=== PATIENT | male | born 1970 | race Caucasian/White ===

== ENCOUNTER 2025-07-03 19:59 | Inpatient (IN) | payer OTHER, SELFPAY ==
[2025-07-03 20:06] VITALS: BP 126/82; PULSE 42; O2SAT 98; BMI 23.6
--- NOTE | 2025-07-03 20:14 | ED.GENADULT ---
HPI - General Adult General Chief complaint: Psychiatric Symptoms Stated complaint: SI Time Seen by Provider: 07/03/25 20:14 Source: patient and EMS Mode of arrival: EMS Limitations: no limitations History of Present Illness ED Provider: Mimi Beyer PA-C HPI narrative: Patient is a 55 year old assigned male at with a history of hepatitis C, depression, IVDA, opiate use disorder on methadone, and tobacco presenting to the emergency department today with suicidal ideation. Patient states that he was recently hospitalized at [facility] for depression and got discharged - went to his boys house, and once kicked out, realized he couldn't take it anymore and began to feel suicidal. Patient denies any other complaints at this time. Related Data Home Medications ?Medication ?Instructions ?Recorded ?Confirmed albuterol sulfate 90 mcg/actuation 2 puff inhalation Q4-6H PRN 07/03/25 07/03/25 aerosol inhaler (Ventolin HFA) Wheezing clonidine HCl 0.1 mg tablet 0.1 mg PO BID 07/03/25 07/03/25 gabapentin 100 mg capsule 100 mg PO TID 07/03/25 07/03/25 hydroxyzine pamoate 50 mg capsule 50 mg PO BID PRN Anxiety 07/03/25 07/03/25 lurasidone 40 mg tablet 40 mg PO DAILY 07/03/25 07/03/25 mirtazapine 7.5 mg tablet 7.5 mg PO BEDTIME 07/03/25 07/03/25 Allergies Allergy/AdvReac Type Severity Reaction Status Date / Time bee pollen (BEE STINGS) Allergy Severe ANAPHYLAXIS Verified 07/03/25 20:23 codeine (CODEINE) Allergy Intermediate HIVES Verified 07/03/25 20:23 Penicillins (PENICILLINS) Allergy Intermediate HIVES Verified 07/03/25 20:23 Review of Systems Constitutional: Constitutional: Reports as per HPI Eyes: Eyes: Reports as per HPI ENT: Reports as per HPI Cardiovascular: Cardiovascular: Reports as per HPI Respiratory: Respiratory: Reports as per HPI Gastrointestinal: Gastrointestinal: Reports as per HPI Genitourinary: Genitourinary: Reports as per HPI Musculoskeletal: Musculoskeletal: Reports as per HPI Integumentary/Breasts: Skin/Breast: Reports as per HPI Neurologic: Reports as per HPI Psychiatric: Psychiatric: Reports as per HPI Endocrine: Endocrine: Reports as per HPI Hematologic/Lymphatic: Hematologic/Lymphatic: Reports as per HPI Allergic/Immunologic: Allergic/Immunologic: Reports as per HPI PMFSH Past Medical History Attestation statement: The following information was validated with the patient. Source: old records reviewed and nursing notes reviewed Social History Social History Smoked in Last 30 Days: No Use of substances other than those prescribed or required for medical reasons: Yes Substance Use Type: Heroin Substance Use Frequency: Weekly Any prior treatment program specific to substance use: No Advance Directives: No Advance Directives Information Provided: No Do you have a plan to hurt others: No Plan Physical Exam ED Vital Signs: Vital Signs - 24 hr 07/03/25 20:52 Pulse Rate 52 Respiratory Rate 16 Blood Pressure 96/60 Pulse Oximetry 97 Oxygen Delivery Method Room Air BMI result Body Mass Index 23.6 Const General: cooperative, no acute distress, alert and awake Nutritional Appearance: well nourished Orientation/consciousness: patient oriented x3 HENMT Head: Yes normal to inspection and Yes atraumatic Ears: hearing grossly normal bilaterally and external ears normal General nose exam: Normal external nose present, no nasal discharge noted and no epistaxis Face and sinus: Yes normal facial exam, No abrasion and No laceration Mouth: Normal oral and palatal mucosa present, no drooling and no muffled voice Eyes Periorbital: periorbital findings normal Conjunctivae: conjunctivae normal Neck Neck: Yes normal visual inspection and Yes full ROM Resp Effort & Inspection: normal respiratory effort and able to speak in complete sentences Neuro General: patient oriented x3, moves all extremities and CN's II-XI intact bilaterally Cognition (Neuro): normal cognition Extrem General: Yes normal to inspection, Yes full ROM and Yes capillary refill normal Psych Appearance: grossly normal Mental Status: mental status grossly normal Affect: normal affect Attitude: cooperative Thought process: Normal thought process present Thought content: Normal thought content present Insight: Good insight present (Psych) Medications Administered Generic Name Dose Route Start Last Admin Trade Name Freq PRN Reason Stop Dose Admin Methadone HCl 160 mg 07/03/25 20:18 07/03/25 22:45 Methadone Hcl 20 Mg/2 Ml Oral.Conc PO 07/03/25 20:19 Not Given ONCE ONE Medical Decision Making Medical Decision Making MDM Narrative: Patient is a 55 year old assigned male at with a history of hepatitis C, depression, IVDA, opiate use disorder on methadone, and tobacco presenting to the emergency department today with suicidal ideation. Patient's physical exam was as noted in the physical exam portion of this note. Patient's blood work showed a HGB of 13.2, BUN of 21, AST of 82, and ALT of 121. Patient's elevated LFTs is likely secondary to his hepatitis status. I explained my physical exam findings as well as all test results to the patient. I answered all questions asked by the patient. Patient placed in observation at 2014 pending CARE Team evaluation. Patient's disposition will be determined after CARE team evaluation. Differential Diagnosis Differential Diagnoses: The differential diagnosis associated with the presentation includes Suicidal ideation Depression Admission/Observation Consideration of admission/observation: Escalation of care including admission/observation considered Patient's disposition will be determined after CARE team evaluation. Lab Data [facility] Lab Attestation statement: I reviewed the patient's lab results. My interpretation of these results are in the MDM Rationale portion of this note. 07/03/25 20:58 07/03/25 20:58 Labs: Lab Results 07/03/25 Range/Units 20:58 WBC 6.4 (4.8-10.8) X10*3/uL RBC 4.56 L (4.60-5.80) X10*6/uL Hgb 13.2 L (14.0-18.0) g/dl Hct 41.0 L (42.0-52.0) % MCV 89.9 (80.0-98.0) fL MCH 28.9 (27.0-33.0) pg MCHC 32.2 (31.0-36.0) g/dl RDW 13.7 (11.0-16.0) % Plt Count 156 L (160-400) X10*3/uL MPV 10.8 (9.4-12.4) fL Immature Gran % (Auto) 0.3 (0.0-0.4) % Neut % (Auto) 57.6 (45-73) % Lymph % (Auto) 33.1 (20-40) % Maury % (Auto) 7.2 (2-11) % Eos % (Auto) 1.3 (0-4) % Baso % (Auto) 0.5 (0-2) % Lymph # (Auto) 2.1 (1.2-4.9) X10*3/uL Maury # (Auto) 0.5 (0.1-1.2) X10*3/uL Eos # (Auto) 0.1 (0.0-0.4) X10*3/uL Baso # (Auto) 0.0 (0.0-0.2) X10*3/uL Abs Immat Gran (auto) 0.02 (0.00-0.03) X10*3/uL Absolute Neuts (auto) 3.7 (2.0-8.3) x10*3/uL Absolute Nucleated RBC 0.000 (0.0-0.012) X10*3/uL Nucleated RBC % (auto) 0.0 (0.0-0.2) /100WBC Sodium 139 (135-145) mmol/L Potassium 4.3 (3.3-5.1) mmol/L Chloride 103 (96-108) mmol/L Carbon Dioxide 26 (22-29) mmol/L Anion Gap 14 (12-20) BUN 21 H (9-16) mg/dL Creatinine 1.20 (0.5-1.4) mg/dL Estim Creat Clear Calc 68.7 Estimated GFR > 60 Random Glucose 144 H (60-115) mg/dL Calcium 9.3 (8.4-10.2) mg/dL Total Bilirubin 0.7 (0.0-1.0) mg/dL AST 82 H (5-37) U/L ALT 121 H (0-40) U/L Alkaline Phosphatase 64 (39-117) U/L Total Protein 7.8 (6.5-8.0) g/dL Albumin 4.4 (3.5-5.0) g/dL Salicylates < 5.0 L (15-30) mg/dL Acetaminophen < 3 (<30) mcg/mL Ethyl Alcohol 12 mg/dL Independent Historian Clinical information obtained from an independent historian. History obtained from or confirmed by: EMS (EMS provided additional history and confirmed the history provided by the patient. ) External Record Review External record reviewed: Outside ED record (reviewed [facility] ED visit from 06/24/2025) Discharge Plan Discharge Clinical Impression: Depression Prescriptions: No Action clonidine HCl 0.1 mg tablet 0.1 mg PO BID hydroxyzine pamoate 50 mg capsule 50 mg PO BID PRN (Reason: Anxiety) gabapentin 100 mg capsule 100 mg PO TID albuterol sulfate [Ventolin HFA] 90 mcg/actuation HFA aerosol inhaler 2 puff inhalation Q4-6H PRN (Reason: Wheezing) mirtazapine 7.5 mg tablet 7.5 mg PO BEDTIME lurasidone 40 mg tablet 40 mg PO DAILY Interventions: [place]-Suicide Risk Severity Scale Last Done: 07/03/25 20:33 Print Language: Belarusian
[2025-07-03 20:52] VITALS: BP 96/60; PULSE 52; RESP 16; O2SAT 97
[2025-07-03 21:05] LABS: Hematocrit 41.0 % (42.0-52.0); Hemoglobin 13.2 g/dl (14.0-18.0); Imm Gran Abs Auto 0.02 X10*3/uL (0.00-0.03); Imm Gran Pct Auto 0.3 % (0.0-0.4); Lymphocytes Absolute Auto 2.1 X10*3/uL (1.2-4.9); MANUAL DIFF FLAG NO; Mean Corpuscular HGB Conc 32.2 g/dl (31.0-36.0); Mean Corpuscular Hemoglobin 28.9 pg (27.0-33.0); Mean Corpuscular Volume 89.9 fL (80.0-98.0); NRBC Abs Auto 0.000 X10*3/uL (0.0-0.012); NRBC Pct Auto 0.0 /100WBC (0.0-0.2); Platelet Count 156 X10*3/uL (160-400); Red Blood Count 4.56 X10*6/uL (4.60-5.80); White Blood Count 6.4 X10*3/uL (4.8-10.8)
[2025-07-03 21:23] LABS: Alanine Aminotransferase 121 U/L (0-40); Albumin Level 4.4 g/dL (3.5-5.0); Alkaline Phosphatase 64 U/L (39-117); Anion Gap 14 (12-20); Aspartate Amino Transferase 82 U/L (5-37); Blood Urea Nitrogen 21 mg/dL (9-16); Calcium 9.3 mg/dL (8.4-10.2); Carbon Dioxide 26 mmol/L (22-29); Chloride 103 mmol/L (96-108); Creatinine Clr Calc Pharmacy 68.7; Estimated Glomerular Filt Rate > 60; Potassium 4.3 mmol/L (3.3-5.1); Sodium 139 mmol/L (135-145); Total Protein 7.8 g/dL (6.5-8.0)
[2025-07-03 21:24] LABS: Acetaminophen LAB < 3 mcg/mL (<30); Salicylate < 5.0 mg/dL (15-30)
--- NOTE | 2025-07-03 22:45 | PC.NURSE ---
Pts Methadone is not given, due to not being able to verify dose at this time, provider and RN made aware.
[2025-07-03 23:12] LABS: Appearance Urine Clear; Glucose Urine UA Negative (Negative); PH 6.0 (5.0-9.0); Specific Gravity - Urine 1.025 (1.005-1.025); UMIC TRIGGER UA YES
[2025-07-03 23:21] LABS: Cannabinoid Screen Urine Not Detected (Not Detect)
--- NOTE | 2025-07-04 | ECG_ITS ---
Test Reason : CHECK PROLONG QT Blood Pressure : */* mmHG Vent. Rate : 42 BPM Atrial Rate : 42 BPM P-R Int : 146 ms QRS Dur : 90 ms QT Int : 546 ms P-R-T Axes : 64 56 47 degrees QTcB Int : 455 ms Marked sinus bradycardia Abnormal ECG No previous ECGs available Referred By: Mimi Beyer Electronically Signed By: KENDELL MARCELO
--- NOTE | 2025-07-04 00:17 | PC.NURSE ---
pt calm and cooperative in stretcher, 1:1 sitter at bedside. respirations even and unlabored.
[2025-07-04 07:00] VITALS: BP 102/70; PULSE 52; RESP 16; TEMP 36.6; O2SAT 97
--- NOTE | 2025-07-04 07:14 | PC.NURSE ---
Pt moved from ED 16H to 3 with security and T Bert. Pt is calm and cooperative, offering no complaints to this RN at this time, continue the plan of care for CARE team evaluation
--- NOTE | 2025-07-04 07:54 | HE.PHANOTE ---
METHADONE Pt last received 160 mg on 07/02/25 from [facility], , per Richard ABRAHAM at the facility.
[2025-07-04] MEDS: methADONE HCl 20 MG/2 ML ORAL.CONC 160 MG PO (08:54)
--- NOTE | 2025-07-04 09:07 | MHC.CARE ---
Pt meets the criteria for DUAL DX level of care. Section 12a in chart. ED provider in agreement.
--- NOTE | 2025-07-04 14:07 | PHA.MEDREC ---
Pharmacy Consult ? Medication Reconciliation Pharmacy has reviewed the medication reconciliation done by RN.
[2025-07-04 16:14] VITALS: BMI 24.1
[2025-07-04 16:15] VITALS: BP 163/74; PULSE 56; RESP 14; TEMP 36.7; O2SAT 97
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
[2025-07-04 20:00] VITALS: BP 131/85; PULSE 59; RESP 16; TEMP 36.5; O2SAT 98
[2025-07-04 20:36] VITALS: BP 131/85
[2025-07-05] MEDS: methADONE HCl 20 MG/2 ML ORAL.CONC 160 MG PO (07:44)
[2025-07-05 08:00] VITALS: BP 124/73; PULSE 60; RESP 18; TEMP 36.3; O2SAT 97
[2025-07-05 08:54] LABS: Alanine Aminotransferase 119 U/L (0-40); Albumin Level 4.2 g/dL (3.5-5.0); Alkaline Phosphatase 87 U/L (39-117); Anion Gap 13 (12-20); Aspartate Amino Transferase 67 U/L (5-37); Blood Urea Nitrogen 18 mg/dL (9-16); Calcium 9.6 mg/dL (8.4-10.2); Carbon Dioxide 29 mmol/L (22-29); Chloride 106 mmol/L (96-108); Cholesterol 201 mg/dL (<200); Creatinine Clr Calc Pharmacy 93.7; Estimated Glomerular Filt Rate > 60; HDL Cholesterol 59 mg/dL (>40); Potassium 4.5 mmol/L (3.3-5.1); Sodium 143 mmol/L (135-145); Total Protein 7.5 g/dL (6.5-8.0); Triglycerides 105 mg/dL (<150)
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
[2025-07-05] MEDS: Triamcinolone Acet 0.1 % Oint 15 GM TUBE 1 APPL TOPICAL (13:30)
[2025-07-05] MEDS: Venlafaxine HCl ER 37.5 MG CAP.ER.24H PO (15:00)
[2025-07-05 20:00] VITALS: BP 122/86; PULSE 60; RESP 15; TEMP 36.4; O2SAT 98
[2025-07-06] MEDS: methADONE HCl 20 MG/2 ML ORAL.CONC 170 MG PO (07:47)
[2025-07-06 08:00] VITALS: BP 117/55; PULSE 66; RESP 18; TEMP 36.9; O2SAT 98
--- NOTE | 2025-07-06 08:32 | HO.PM.IMCN ---
History of Present Illness Data of Consult Service Date: 07/06/25 Primary Care Provider: Unknown Physician HPI Reason for consult: Medical consult 55-year-old male with a past medical history of untreated hep C, depression, IVDA, opioid use disorder on methadone, GERD in tobacco misuse. Presented to the ED with suicidal ideation. Patient was recently hospitalized at [facility] and went to a friend's house and was subsequently kicked out and began to feel suicidal after this. Initial workup with HGB of 13.2, BUN of 21, AST of 82, and ALT of 121. On exam he reports he has not been getting his omeprazole for his diagnosed GERD. Reports that he falls outpatient GI but does not know the name, has had upper and lower GI series. He otherwise has no medical concerns. Review of Systems Review of Systems: Denies any shortness of breath, chest pain, headaches, dysuria, abdominal pain or discomfort, nausea, vomiting or diarrhea. Denies fever or chills. [facility] Medical History (Updated 07/06/25 @ 13:44 by Sarah Blair DNP) Homeless Cocaine use disorder Opioid use disorder PTSD (post-traumatic stress disorder) MDD (major depressive disorder), recurrent, severe, with psychosis Social History Housing: Homeless Do you presently have visiting nurse or other home services: No Patient Tobacco Use Status: Current everyday Tobacco user Tobacco use type: Cigarette Smoked in Last 30 Days: Yes e-Cigarette/Vaping Use: Never Used Patient Interested in Nicotine Replacement: Yes Patient Given Instructions on How to Stop Smoking: Yes Date Education Initiated: 07/04/25 Second Hand Smoke Exposure: Yes Use of substances other than those prescribed or required for medical reasons: Yes Substance Use Type: Heroin Substance Use Frequency: Weekly Currently Displaying Signs/Symptoms of Drug Intoxication Withdrawal: No Any prior treatment program specific to substance use: No Have you been hit, kicked, punched, or otherwise hurt by someone within the past year? If so, by whom?: No Do you feel safe in your current relationship?: No Current Relationship Is there a partner from a previous relationship who is making you feel unsafe now?: No Are you made to feel afraid or neglected: No Advance Directives: No Advance Directives Information Provided: No Do you have thoughts of harming others: None Do you have a plan to hurt others: No Plan Recently lost weight without trying: Yes How much weight loss: 14-23 pounds Eating poorly because of decreased appetite: Yes Nutrition screen score: 5 Nutrition Risks: Anorexia Poor oral hygiene: No service: No Sexual orientation: Straight/Heterosexual Meds Allergies Allergy/AdvReac Type Severity Reaction Status Date / Time bee pollen (BEE STINGS) Allergy Severe ANAPHYLAXIS Verified 07/03/25 20:23 codeine (CODEINE) Allergy Intermediate HIVES Verified 07/03/25 20:23 Penicillins (PENICILLINS) Allergy Intermediate HIVES Verified 07/03/25 20:23 Active Medications: Current Medications Acetaminophen (Acetaminophen 325 Mg Tablet) 650 mg PO Q6H PRN PRN Reason: Headache/Pain, Scale 1-10 Last Admin: 07/05/25 11:02 Dose: 650 mg Al Hydroxide/Mg Hydroxide (Magnesium Hydrox/Alum Hydrox 30 Ml Oral.Susp) 30 ml PO Q6H PRN PRN Reason: Heartburn/Nausea Albuterol Sulfate (Albuterol Sulfate 90 Mcg 8 Gm Inhaler) 2 puff INHALE Q4H PRN PRN Reason: Wheezing Clonidine HCl (Clonidine Hcl 0.1 Mg Tablet) 0.1 mg PO BID [facility]; Protocol Last Admin: 07/05/25 20:46 Dose: 0.1 mg Gabapentin (Gabapentin 100 Mg Capsule) 100 mg PO TID [facility] Last Admin: 07/05/25 20:45 Dose: 100 mg Glucose (Glucose Gel 15 Gm Gel..Gram.) 15 gm PO Q15M PRN PRN Reason: per Hypoglycemia Standing Ord. Hydroxyzine HCl (Hydroxyzine Hcl 50 Mg Tablet) 50 mg PO BID PRN PRN Reason: Anxiety Last Admin: 07/05/25 20:45 Dose: 50 mg Magnesium Hydroxide (Milk Of Magnesia 30 Ml Oral.Susp) 30 ml PO DAILY PRN PRN Reason: Constipation Methadone HCl (Methadone Hcl 20 Mg/2 Ml Oral.Conc) 170 mg PO DAILY [facility] Last Admin: 07/06/25 07:47 Dose: 170 mg Mirtazapine (Mirtazapine 7.5 Mg Tablet) 7.5 mg PO BEDTIME [facility] Last Admin: 07/05/25 20:46 Dose: 7.5 mg Multi-Ingred Cream/Lotion/Oil/Oint (Mineral Oil/Petrolatum,White 106 Gm Tube) 1 appl TOPICAL TID PRN; Protocol PRN Reason: dry skin Nicotine Polacrilex (Nicotine Polacrilex 2 Mg Gum) 4 mg BUCCAL Q2H PRN PRN Reason: Nicotine Cravings Olanzapine (Olanzapine 5 Mg Tablet) 5 mg PO TID PRN PRN Reason: agitation Last Admin: 07/05/25 20:48 Dose: 5 mg Trazodone HCl (Trazodone Hcl 50 Mg Tablet) 50 mg PO BEDTIME MRX1 PRN PRN Reason: Insomnia Triamcinolone Acetonide (Triamcinolone Acet 0.1 % Oint 15 Gm Tube) 1 appl TOPICAL BID [facility] Last Admin: 07/05/25 20:59 Dose: Not Given Venlafaxine HCl (Venlafaxine Hcl Er 37.5 Mg Cap.Er.24h) 37.5 mg PO DAILY [facility] Last Admin: 07/05/25 15:00 Dose: 37.5 mg Home Medications ?Medication ?Instructions ?Recorded ?Confirmed ?Last Taken ?Type albuterol sulfate 90 mcg/actuation 2 puff inhalation Q4-6H PRN 07/03/25 07/03/25 Unknown History aerosol inhaler (Ventolin HFA) Wheezing clonidine HCl 0.1 mg tablet 0.1 mg PO BID 07/03/25 07/03/25 07/01/25 History gabapentin 100 mg capsule 100 mg PO TID 07/03/25 07/03/25 07/01/25 History hydroxyzine pamoate 50 mg capsule 50 mg PO BID PRN Anxiety 07/03/25 07/03/25 Unknown History lurasidone 40 mg tablet 40 mg PO DAILY 07/03/25 07/03/25 07/01/25 History mirtazapine 7.5 mg tablet 7.5 mg PO BEDTIME 07/03/25 07/03/25 07/01/25 History methadone 10 mg/mL oral 160 mg PO DAILY 07/04/25 07/04/25 07/02/25 History concentrate (Methadone Intensol) Physical Exam Vital Signs and Narrative: Vital Signs: Last Vital Signs Temp 97.5 F 07/05/25 20:00 Pulse 60 07/05/25 20:00 Resp 15 07/05/25 20:00 BP 122/86 07/05/25 20:00 Pulse Ox 98 07/05/25 20:00 O2 Del Method Room Air 07/05/25 08:00 BMI result Body Mass Index 24.1 Alert and oriented X3, calm and cooperative. Answers questions. Neuro: CN II-X11 intact, no deficits, visual acuity intact EYES: PERRLA, EOM intact ENT: Hearing intact, MMM Cardiac: S1 S2 RRR, No ectopy Pulmonary: lungs clear to auscultation, No increased WOB. Abdominal: BS active in all 4 quadrants, no guarding or tenderness MSK: Strength 5/5 upper and lower extremities : Deferred Extremities: No edema in lower extremities Psych: Mood stable, Quiet and cooperative. Skin: Warm and dry, Intact Results Labs 07/03/25 20:58 07/05/25 08:08 Labs: Laboratory Results - last 24 hr 07/05/25 08:08 Anion Gap 13 Estim Creat Clear Calc 93.7 Estimated GFR > 60 Random Glucose 85 Estimat Average Glucose 111 Hemoglobin A1c % 5.5 Calcium 9.6 Total Bilirubin 0.4 AST 67 H ALT 119 H Alkaline Phosphatase 87 Total Protein 7.5 Albumin 4.2 Triglycerides 105 Cholesterol 201 H LDL Cholesterol, Calc 121 H HDL Cholesterol 59 TSH 2.01 Assessment and Plan (1) GERD (gastroesophageal reflux disease): Status: Acute Plan 55-year-old male with a history of untreated hep C, depression, IVDA, opioid use disorder on methadone, restless legs syndrome, GERD, tobacco use admitted to inpatient psych after presenting to the ED with suicidal ideation. Depression/suicidal ideations/IVDA/opioid use disorder on methadone Treatment per psychiatric team GERD Continue omeprazole daily Follow up with GI outpatient Transaminitis/untreated hep C We will need to follow up with outpatient GI Thank you for allowing me to participate in the care of this patient. Will follow with you, please notify medical provider with any changes in condition or concerns.
[2025-07-06 08:45] VITALS: BP 114/59
[2025-07-06] MEDS: Triamcinolone Acet 0.1 % Oint 15 GM TUBE 1 APPL TOPICAL (08:46)
[2025-07-06] MEDS: Venlafaxine HCl ER 37.5 MG CAP.ER.24H PO (08:46)
--- NOTE | 2025-07-06 17:37 | P.PNPSI_ITS ---
Subjective Subjective Date of Service: 07/06/25 Reason For Visit: SI Interim History: Met with patient; discussed with team Patient reports he remains depressed and anxious but is feeling better and grateful for the help received. Attending groups. Agrees to increase venlafaxine. Reiterates that he very much wants help getting into a program Mental Status Exam Mental Status Exam Narrative: :Pt is alert and oriented; behavior is more social, in good behavioral and impulse control; cooperative, polite, friendly; patient is not in distress; dressed in casual attire; mood is described as depressed and affect congruent, downcast; eye contact appropriate; Speech is normal rate, volume and prosody and not pressured; psychomotor retardation remain; thought process is organized and goal directed; Thought content is on dealing with psychosocial stressors, tx; otherwise pertinent to relevant topics and without any delusional content, paranoid ideations or grandiosity; no SI; no HI. Denies AVH and there is no evidence of perceptual disturbance. Patients insight and judgment improving Diagnostics Vital Signs (24Hr): Vital Signs - 24 hr 07/05/25 20:00 07/06/25 08:00 07/06/25 08:45 Temperature 97.5 F 98.5 F Pulse Rate 60 66 Respiratory Rate 15 18 Blood Pressure 122/86 117/55 L 114/59 L Pulse Oximetry 98 98 Oxygen Delivery Method Room Air BMI result Body Mass Index 24.1 Labs 07/03/25 20:58 07/05/25 08:08 Labs: Laboratory Results - last 48 hr 07/05/25 08:08 Sodium 143 Potassium 4.5 Chloride 106 Carbon Dioxide 29 Anion Gap 13 BUN 18 H Creatinine 0.88 Estim Creat Clear Calc 93.7 Estimated GFR > 60 Random Glucose 85 Estimat Average Glucose 111 Hemoglobin A1c % 5.5 Calcium 9.6 Total Bilirubin 0.4 AST 67 H ALT 119 H Alkaline Phosphatase 87 Total Protein 7.5 Albumin 4.2 Triglycerides 105 Cholesterol 201 H LDL Cholesterol, Calc 121 H HDL Cholesterol 59 TSH 2.01 Medications Medications Current Medications Acetaminophen (Acetaminophen 325 Mg Tablet) 650 mg PO Q6H PRN PRN Reason: Headache/Pain, Scale 1-10 Last Admin: 07/05/25 11:02 Dose: 650 mg Al Hydroxide/Mg Hydroxide (Magnesium Hydrox/Alum Hydrox 30 Ml Oral.Susp) 30 ml PO Q6H PRN PRN Reason: Heartburn/Nausea Albuterol Sulfate (Albuterol Sulfate 90 Mcg 8 Gm Inhaler) 2 puff INHALE Q4H PRN PRN Reason: Wheezing Clonidine HCl (Clonidine Hcl 0.1 Mg Tablet) 0.1 mg PO BID COUNTS INCLUDE 234 BEDS AT THE [facility]; Protocol Last Admin: 07/06/25 08:45 Dose: 0.1 mg Gabapentin (Gabapentin 100 Mg Capsule) 100 mg PO TID COUNTS INCLUDE 234 BEDS AT THE [facility] Last Admin: 07/06/25 14:14 Dose: 100 mg Glucose (Glucose Gel 15 Gm Gel..Gram.) 15 gm PO Q15M PRN PRN Reason: per Hypoglycemia Standing Ord. Hydroxyzine HCl (Hydroxyzine Hcl 50 Mg Tablet) 50 mg PO BID PRN PRN Reason: Anxiety Last Admin: 07/05/25 20:45 Dose: 50 mg Magnesium Hydroxide (Milk Of Magnesia 30 Ml Oral.Susp) 30 ml PO DAILY PRN PRN Reason: Constipation Methadone HCl (Methadone Hcl 20 Mg/2 Ml Oral.Conc) 170 mg PO DAILY COUNTS INCLUDE 234 BEDS AT THE [facility] Last Admin: 07/06/25 07:47 Dose: 170 mg Mirtazapine (Mirtazapine 7.5 Mg Tablet) 7.5 mg PO BEDTIME COUNTS INCLUDE 234 BEDS AT THE [facility] Last Admin: 07/05/25 20:46 Dose: 7.5 mg Multi-Ingred Cream/Lotion/Oil/Oint (Mineral Oil/Petrolatum,White 106 Gm Tube) 1 appl TOPICAL TID PRN; Protocol PRN Reason: dry skin Nicotine Polacrilex (Nicotine Polacrilex 2 Mg Gum) 4 mg BUCCAL Q2H PRN PRN Reason: Nicotine Cravings Olanzapine (Olanzapine 5 Mg Tablet) 5 mg PO TID PRN PRN Reason: agitation Last Admin: 07/06/25 11:05 Dose: 5 mg Omeprazole (Omeprazole 20 Mg Capsule.Dr) 20 mg PO DAILY@0630 COUNTS INCLUDE 234 BEDS AT THE [facility] Last Admin: 07/06/25 14:14 Dose: 20 mg Trazodone HCl (Trazodone Hcl 50 Mg Tablet) 50 mg PO BEDTIME MRX1 PRN PRN Reason: Insomnia Triamcinolone Acetonide (Triamcinolone Acet 0.1 % Oint 15 Gm Tube) 1 appl TOPICAL BID COUNTS INCLUDE 234 BEDS AT THE [facility] Last Admin: 07/06/25 08:46 Dose: 1 appl Venlafaxine HCl (Venlafaxine Hcl Er 37.5 Mg Cap.Er.24h) 37.5 mg PO DAILY COUNTS INCLUDE 234 BEDS AT [facility] Last Admin: 07/06/25 08:46 Dose: 37.5 mg Allergies Allergies Allergy/AdvReac Type Severity Reaction Status Date / Time bee pollen (BEE STINGS) Allergy Severe ANAPHYLAXIS Verified 07/03/25 20:23 codeine (CODEINE) Allergy Intermediate HIVES Verified 07/03/25 20:23 Penicillins (PENICILLINS) Allergy Intermediate HIVES Verified 07/03/25 20:23 Assessment & Plan Assessment & Plan (1) MDD (major depressive disorder), recurrent, severe, with psychosis: Status: Acute Code(s): F33.3 - Major depressive disorder, recurrent, severe with psychotic symptoms (2) PTSD (post-traumatic stress disorder): Status: Acute Code(s): F43.10 - Post-traumatic stress disorder, unspecified (3) Opioid use disorder: Status: Acute Code(s): F11.90 - Opioid use, unspecified, uncomplicated (4) Cocaine use disorder: Status: Acute Code(s): F14.10 - Cocaine abuse, uncomplicated (5) Homeless: Status: Acute Code(s): Z59.00 - Homelessness unspecified Plan HPI: Patient is a 55-year-old male with history of MDD, PTSD, heroin/cocaine use disorder, Hep C who presents for depression and suicide ideation. Patient was recently discharged from [facility], admitted there for depression and SI. On discharge he reports feeling a little better but depression remained. He remained homeless and went to stay at a friend's house however found out he was not able to remain there and faced with homelessness again, depression return, patient had AH he relapsed on heroin and cocaine and became suicidal. He asked his friend if he could have a gun to commit suicide; his friend of course did not give it to him and the 2 of them called 911. Patient denies history of manic type behaviors or episodes; endorses intermittent AH but only when feeling upset and emotional and mood congruent. Formulation/clinical reasoning: Long history of depression compounded by severe childhood trauma which has remained largely on processed; no significant medication trials. Patient started on mirtazapine which stayed at 7.5 mg and just use for sleep; otherwise history of clonidine, Xanax, Adderall... Patient asking for help, with medication and program for help with substance abuse. Reviewed risks/side effects and patient agreed to start on venlafaxine Hospital course: 11/3 Patient reports he remains depressed and anxious but is feeling better and grateful for the help received. Attending groups. Agrees to increase venlafaxine. Reiterates that he very much wants help getting into a program Patient remains in good behavioral and impulse control; he is appropriate with peers and staff and engaged in treatment Plan: CV Q 15 minute checks Continue mirtazapine 7.5 mg q.h.s. for insomnia (trazodone/Seroquel not effective) titrate to venlafaxine 75mg Clonidine p.r.n. Clonidine 0.1 mg b.i.d. home med Gabapentin 100 mg t.i.d. home medication Methadone 170 mg daily home medication . Patient educated on: diagnosis, medication risk/benefits, substance abuse and therapeutic strategies Informed Consent: understands Reason for continued inpatient stay Substantial Risk for: rapid decompensation Time Spent With Patient Time: Total time managing care of this patient today ____ minutes.
[2025-07-06 20:00] VITALS: BP 138/72; PULSE 58; TEMP 36.4; O2SAT 96
[2025-07-06 20:45] VITALS: BP 138/72
[2025-07-07] MEDS: methADONE HCl 20 MG/2 ML ORAL.CONC 170 MG PO (07:59)
[2025-07-07 08:00] VITALS: BP 133/86; PULSE 60; TEMP 36.4; O2SAT 98
[2025-07-07] MEDS: Venlafaxine HCl ER 75 MG CAP.ER.24H PO (08:39)
--- NOTE | 2025-07-07 17:30 | HO.PSYCHPN ---
Subjective Subjective Date of Service: 07/07/25 Reason For Visit: SI Interim History: Met with patient; discussed with team Patient reports overall doing better, depression remains but definitely improving. Patient however reports getting quite anxious today. Not sure if it is due to increase in venlafaxine. Patient continues to engage in groups and work on coping skills. Discussed medication and will lower venlafaxine down again to see if this mitigates anxiety Mental Status Exam Mental Status Exam Narrative: :Pt is alert and oriented; behavior is social, in good behavioral and impulse control; cooperative, polite, friendly; patient is not in distress; dressed in casual attire; mood is described as depressed but better and affect congruent, downcast; eye contact appropriate; Speech is normal rate, volume and prosody and not pressured; psychomotor retardation remain; thought process is organized and goal directed; Thought content is on dealing with psychosocial stressors, tx; otherwise pertinent to relevant topics and without any delusional content, paranoid ideations or grandiosity; no SI; no HI. Denies AVH and there is no evidence of perceptual disturbance. Patients insight and judgment fair Diagnostics Vital Signs (24Hr): Vital Signs - 24 hr 07/06/25 20:00 07/06/25 20:45 07/07/25 08:00 Temperature 97.5 F 97.6 F Pulse Rate 58 60 Blood Pressure 138/72 138/72 133/86 Pulse Oximetry 96 98 Oxygen Delivery Method Room Air Room Air BMI result Body Mass Index 24.1 Labs 07/03/25 20:58 07/05/25 08:08 Medications Medications Current Medications Acetaminophen (Acetaminophen 325 Mg Tablet) 650 mg PO Q6H PRN PRN Reason: Headache/Pain, Scale 1-10 Last Admin: 07/05/25 11:02 Dose: 650 mg Al Hydroxide/Mg Hydroxide (Magnesium Hydrox/Alum Hydrox 30 Ml Oral.Susp) 30 ml PO Q6H PRN PRN Reason: Heartburn/Nausea Albuterol Sulfate (Albuterol Sulfate 90 Mcg 8 Gm Inhaler) 2 puff INHALE Q4H PRN PRN Reason: Wheezing Clonidine HCl (Clonidine Hcl 0.1 Mg Tablet) 0.1 mg PO BID [facility]; Protocol Last Admin: 07/07/25 08:39 Dose: 0.1 mg Clonidine HCl (Clonidine Hcl 0.1 Mg Tablet) 0.1 mg PO Q4H PRN; Protocol PRN Reason: moderate anxiety Gabapentin (Gabapentin 100 Mg Capsule) 100 mg PO TID [facility] Last Admin: 07/07/25 14:07 Dose: 100 mg Glucose (Glucose Gel 15 Gm Gel..Gram.) 15 gm PO Q15M PRN PRN Reason: per Hypoglycemia Standing Ord. Hydroxyzine HCl (Hydroxyzine Hcl 50 Mg Tablet) 50 mg PO BID PRN PRN Reason: Anxiety Last Admin: 07/07/25 14:07 Dose: 50 mg Magnesium Hydroxide (Milk Of Magnesia 30 Ml Oral.Susp) 30 ml PO DAILY PRN PRN Reason: Constipation Methadone HCl (Methadone Hcl 20 Mg/2 Ml Oral.Conc) 170 mg PO DAILY [facility] Last Admin: 07/07/25 07:59 Dose: 170 mg Mirtazapine (Mirtazapine 7.5 Mg Tablet) 7.5 mg PO BEDTIME [facility] Last Admin: 07/06/25 20:47 Dose: 7.5 mg Multi-Ingred Cream/Lotion/Oil/Oint (Mineral Oil/Petrolatum,White 106 Gm Tube) 1 appl TOPICAL TID PRN; Protocol PRN Reason: dry skin Nicotine Polacrilex (Nicotine Polacrilex 2 Mg Gum) 4 mg BUCCAL Q2H PRN PRN Reason: Nicotine Cravings Olanzapine (Olanzapine 5 Mg Tablet) 5 mg PO TID PRN PRN Reason: agitation Last Admin: 07/07/25 10:48 Dose: 5 mg Omeprazole (Omeprazole 20 Mg Capsule.Dr) 20 mg PO DAILY@0630 [facility] Last Admin: 07/07/25 07:16 Dose: 20 mg Trazodone HCl (Trazodone Hcl 50 Mg Tablet) 50 mg PO BEDTIME MRX1 PRN PRN Reason: Insomnia Triamcinolone Acetonide (Triamcinolone Acet 0.1 % Oint 15 Gm Tube) 1 appl TOPICAL BID [facility] Last Admin: 07/07/25 08:42 Dose: Not Given Venlafaxine HCl (Venlafaxine Hcl Er 37.5 Mg Cap.Er.24h) 37.5 mg PO DAILY [facility] Allergies Allergies Allergy/AdvReac Type Severity Reaction Status Date / Time bee pollen (BEE STINGS) Allergy Severe ANAPHYLAXIS Verified 07/03/25 20:23 codeine (CODEINE) Allergy Intermediate HIVES Verified 07/03/25 20:23 Penicillins (PENICILLINS) Allergy Intermediate HIVES Verified 07/03/25 20:23 Assessment & Plan Assessment & Plan (1) MDD (major depressive disorder), recurrent, severe, with psychosis: Status: Acute Code(s): F33.3 - Major depressive disorder, recurrent, severe with psychotic symptoms (2) PTSD (post-traumatic stress disorder): Status: Acute Code(s): F43.10 - Post-traumatic stress disorder, unspecified (3) Opioid use disorder: Status: Acute Code(s): F11.90 - Opioid use, unspecified, uncomplicated (4) Cocaine use disorder: Status: Acute Code(s): F14.10 - Cocaine abuse, uncomplicated (5) Homeless: Status: Acute Code(s): Z59.00 - Homelessness unspecified Plan HPI: Patient is a 55-year-old male with history of MDD, PTSD, heroin/cocaine use disorder, Hep C who presents for depression and suicide ideation. Patient was recently discharged from [facility], admitted there for depression and SI. On discharge he reports feeling a little better but depression remained. He remained homeless and went to stay at a friend's house however found out he was not able to remain there and faced with homelessness again, depression return, patient had AH he relapsed on heroin and cocaine and became suicidal. He asked his friend if he could have a gun to commit suicide; his friend of course did not give it to him and the 2 of them called 911. Patient denies history of manic type behaviors or episodes; endorses intermittent AH but only when feeling upset and emotional and mood congruent. Formulation/clinical reasoning: Long history of depression compounded by severe childhood trauma which has remained largely on processed; no significant medication trials. Patient started on mirtazapine which stayed at 7.5 mg and just use for sleep; otherwise history of clonidine, Xanax, Adderall... Patient asking for help, with medication and program for help with substance abuse. Reviewed risks/side effects and patient agreed to start on venlafaxine Hospital course: 07/06 Patient reports he remains depressed and anxious but is feeling better and grateful for the help received. Attending groups. Agrees to increase venlafaxine. Reiterates that he very much wants help getting into a program 07/07 Patient reports overall doing better, depression remains but definitely improving. Patient however reports getting quite anxious today. Not sure if it is due to increase in venlafaxine. Patient continues to engage in groups and work on coping skills. Discussed medication and will lower venlafaxine down again to see if this mitigates anxiety (many possible causes for anxiety; will monitor) Patient remains in good behavioral and impulse control; he is appropriate with peers and staff and engaged in treatment Plan: CV Q 15 minute checks Continue mirtazapine 7.5 mg q.h.s. for insomnia (trazodone/Seroquel not effective) Temporary lower back to venlafaxine 37.5 mg Clonidine p.r.n. Clonidine 0.1 mg b.i.d. home med Gabapentin 100 mg t.i.d. home medication Methadone 170 mg daily home medication . Reason for continued inpatient stay Substantial Risk for: rapid decompensation Time Spent With Patient Time: Total time managing care of this patient today ____ minutes.
[2025-07-07] MEDS: Triamcinolone Acet 0.1 % Oint 15 GM TUBE 1 APPL TOPICAL (22:39)
[2025-07-08] MEDS: methADONE HCl 20 MG/2 ML ORAL.CONC 170 MG PO (07:56)
[2025-07-08 08:35] VITALS: BP 136/84
[2025-07-08] MEDS: Venlafaxine HCl ER 37.5 MG CAP.ER.24H PO (08:36)
[2025-07-08] MEDS: Triamcinolone Acet 0.1 % Oint 15 GM TUBE 1 APPL TOPICAL (08:36)
--- NOTE | 2025-07-08 08:41 | P.PNPSI_ITS ---
Subjective Subjective Date of Service: 07/08/25 Reason For Visit: SI Interim History: Met with patient; discussed with team Reports mood is good, anxiety not too bad today. Reviewed plan with venlafaxine and patient will monitor for spikes in anxiety. Otherwise reports benefitting from groups and hopeful about getting into a program. Mental Status Exam Mental Status Exam Narrative: :Pt is alert and oriented; behavior is social, in good behavioral and impulse control; cooperative, polite, friendly; patient is not in distress; dressed in casual attire; mood is described as better and affect congruent, brighter; eye contact appropriate; Speech is normal rate, volume and prosody and not pressured; psychomotor retardation remain; thought process is organized and goal directed; Thought content is on dealing with psychosocial stressors, tx; otherwise pertinent to relevant topics and without any delusional content, paranoid ideations or grandiosity; no SI; no HI. Denies AVH and there is no evidence of perceptual disturbance. Patients insight and judgment fair Diagnostics Vital Signs (24Hr): Vital Signs - 24 hr 07/08/25 08:35 Blood Pressure 136/84 BMI result Body Mass Index 24.1 Labs 07/03/25 20:58 07/05/25 08:08 Medications Medications Current Medications Acetaminophen (Acetaminophen 325 Mg Tablet) 650 mg PO Q6H PRN PRN Reason: Headache/Pain, Scale 1-10 Last Admin: 07/05/25 11:02 Dose: 650 mg Al Hydroxide/Mg Hydroxide (Magnesium Hydrox/Alum Hydrox 30 Ml Oral.Susp) 30 ml PO Q6H PRN PRN Reason: Heartburn/Nausea Albuterol Sulfate (Albuterol Sulfate 90 Mcg 8 Gm Inhaler) 2 puff INHALE Q4H PRN PRN Reason: Wheezing Clonidine HCl (Clonidine Hcl 0.1 Mg Tablet) 0.1 mg PO BID [facility]; Protocol Last Admin: 07/08/25 08:35 Dose: 0.1 mg Clonidine HCl (Clonidine Hcl 0.1 Mg Tablet) 0.1 mg PO Q4H PRN; Protocol PRN Reason: moderate anxiety Gabapentin (Gabapentin 100 Mg Capsule) 100 mg PO TID [facility] Last Admin: 07/08/25 08:35 Dose: 100 mg Glucose (Glucose Gel 15 Gm Gel..Gram.) 15 gm PO Q15M PRN PRN Reason: per Hypoglycemia Standing Ord. Hydroxyzine HCl (Hydroxyzine Hcl 50 Mg Tablet) 50 mg PO BID PRN PRN Reason: Anxiety Last Admin: 07/07/25 14:07 Dose: 50 mg Magnesium Hydroxide (Milk Of Magnesia 30 Ml Oral.Susp) 30 ml PO DAILY PRN PRN Reason: Constipation Methadone HCl (Methadone Hcl 20 Mg/2 Ml Oral.Conc) 170 mg PO DAILY [facility] Last Admin: 07/08/25 07:56 Dose: 170 mg Mirtazapine (Mirtazapine 7.5 Mg Tablet) 7.5 mg PO BEDTIME [facility] Last Admin: 07/07/25 20:34 Dose: 7.5 mg Multi-Ingred Cream/Lotion/Oil/Oint (Mineral Oil/Petrolatum,White 106 Gm Tube) 1 appl TOPICAL TID PRN; Protocol PRN Reason: dry skin Nicotine Polacrilex (Nicotine Polacrilex 2 Mg Gum) 4 mg BUCCAL Q2H PRN PRN Reason: Nicotine Cravings Olanzapine (Olanzapine 5 Mg Tablet) 5 mg PO TID PRN PRN Reason: agitation Last Admin: 07/07/25 20:34 Dose: 5 mg Omeprazole (Omeprazole 20 Mg Capsule.Dr) 20 mg PO DAILY@0630 [facility] Last Admin: 07/08/25 06:37 Dose: 20 mg Trazodone HCl (Trazodone Hcl 50 Mg Tablet) 50 mg PO BEDTIME MRX1 PRN PRN Reason: Insomnia Triamcinolone Acetonide (Triamcinolone Acet 0.1 % Oint 15 Gm Tube) 1 appl TOPICAL BID [facility] Last Admin: 07/08/25 08:36 Dose: 1 appl Venlafaxine HCl (Venlafaxine Hcl Er 37.5 Mg Cap.Er.24h) 37.5 mg PO DAILY [facility] Last Admin: 07/08/25 08:36 Dose: 37.5 mg Allergies Allergies Allergy/AdvReac Type Severity Reaction Status Date / Time bee pollen (BEE STINGS) Allergy Severe ANAPHYLAXIS Verified 07/03/25 20:23 codeine (CODEINE) Allergy Intermediate HIVES Verified 07/03/25 20:23 Penicillins (PENICILLINS) Allergy Intermediate HIVES Verified 07/03/25 20:23 Assessment & Plan Assessment & Plan (1) MDD (major depressive disorder), recurrent, severe, with psychosis: Status: Acute Code(s): F33.3 - Major depressive disorder, recurrent, severe with psychotic symptoms (2) PTSD (post-traumatic stress disorder): Status: Acute Code(s): F43.10 - Post-traumatic stress disorder, unspecified (3) Opioid use disorder: Status: Acute Code(s): F11.90 - Opioid use, unspecified, uncomplicated (4) Cocaine use disorder: Status: Acute Code(s): F14.10 - Cocaine abuse, uncomplicated (5) Homeless: Status: Acute Code(s): Z59.00 - Homelessness unspecified Plan HPI: Patient is a 55-year-old male with history of MDD, PTSD, heroin/cocaine use disorder, Hep C who presents for depression and suicide ideation. Patient was recently discharged from [facility], admitted there for depression and SI. On discharge he reports feeling a little better but depression remained. He remained homeless and went to stay at a friend's house however found out he was not able to remain there and faced with homelessness again, depression return, patient had AH he relapsed on heroin and cocaine and became suicidal. He asked his friend if he could have a gun to commit suicide; his friend of course did not give it to him and the 2 of them called 911. Patient denies history of manic type behaviors or episodes; endorses intermittent AH but only when feeling upset and emotional and mood congruent. Formulation/clinical reasoning: Long history of depression compounded by severe childhood trauma which has remained largely on processed; no significant medication trials. Patient started on mirtazapine which stayed at 7.5 mg and just use for sleep; otherwise history of clonidine, Xanax, Adderall... Patient asking for help, with medication and program for help with substance abuse. Reviewed risks/side effects and patient agreed to start on venlafaxine Hospital course: 07/06 Patient reports he remains depressed and anxious but is feeling better and grateful for the help received. Attending groups. Agrees to increase venlafaxine. Reiterates that he very much wants help getting into a program 07/07 Patient reports overall doing better, depression remains but definitely improving. Patient however reports getting quite anxious today. Not sure if it is due to increase in venlafaxine. Patient continues to engage in groups and work on coping skills. Discussed medication and will lower venlafaxine down again to see if this mitigates anxiety (many possible causes for anxiety; will monitor) 07/08 Reports mood is good, anxiety not too bad today. Reviewed plan with venlafaxine and patient will monitor for spikes in anxiety. Otherwise reports benefitting from groups and hopeful about getting into a program. -lowered venlafaxine to 37.5; will increase back to 75 mg Patient remains in good behavioral and impulse control; he is appropriate with peers and staff and engaged in treatment Plan: CV Q 15 minute checks Continue mirtazapine 7.5 mg q.h.s. for insomnia (trazodone/Seroquel not effective) Venlafaxine ER 75 mg Clonidine p.r.n. Clonidine 0.1 mg b.i.d. home med Gabapentin 100 mg t.i.d. home medication Methadone 170 mg daily home medication . Patient educated on: diagnosis, medication risk/benefits, substance abuse and therapeutic strategies Informed Consent: understands Reason for continued inpatient stay Substantial Risk for: stable for discharge Time Spent With Patient Time: Total time managing care of this patient today ____ minutes.
[2025-07-08 19:53] VITALS: BP 139/83; PULSE 73; RESP 16; TEMP 36.8; O2SAT 95
[2025-07-09] MEDS: methADONE HCl 20 MG/2 ML ORAL.CONC 170 MG PO (07:50)
[2025-07-09 08:00] VITALS: BP 120/58; PULSE 67; TEMP 36.4; O2SAT 98
[2025-07-09 08:44] VITALS: BP 120/58
[2025-07-09] MEDS: Venlafaxine HCl ER 75 MG CAP.ER.24H PO (08:44)
[2025-07-09] MEDS: Mineral Oil/Petrolatum,White 106 GM Tube 1 APPL TOPICAL (08:45)
--- NOTE | 2025-07-09 09:13 | P.PNPSI_ITS ---
Documented by User: Chito Gibbons CNP 07/10/25 07:57 Subjective Subjective Date of Service: 07/09/25 Reason For Visit: SI Subjective Notes: Conditional Voluntary Medical Problems Affecting Mental Status: No Interim History: Patient states that he feels so so. He reports severe, 7-8/10, anxiety and depressive symptoms 1 hour after taking his medications this morning. However, he states that his more anxious than depressed. He also endorses loss of appetite and hot and cold flashes. He states that his sleep was fragmented last night. He ate some of his breakfast this morning. He denies SI/HI/AVH. Medication Compliance: Yes Side effects from medications: No Attending Groups: Intermittent Review of Systems Acute medical concerns: No Mental Status Exam Mental Status Exam Narrative: Appearance: Casually dressed, adequate hygiene and grooming Behavior: Calm and cooperative throughout the interview. Eye contact is appropriate, and there are no signs of psychomotor agitation or retardation Speech: Normal volume and prosody Thought process: Logical and goal-directed Thought content: On treatment Mood: So so and depressed Affect: Mood congruent SI: Denies HI: Denies VH/AH: None Delusions: None apparent Insight/judgment: Fair insight and judgment Memory/cog: Alert, oriented x 4. grossly intact to conversational testing Diagnostics Vital Signs (24Hr): Vital Signs - 24 hr 07/08/25 19:53 07/09/25 08:44 Temperature 98.3 F Pulse Rate 73 Respiratory Rate 16 Blood Pressure 139/83 120/58 L Pulse Oximetry 95 Oxygen Delivery Method Room Air BMI result Body Mass Index 24.1 Labs 07/03/25 20:58 07/05/25 08:08 Medications Medications Current Medications Acetaminophen (Acetaminophen 325 Mg Tablet) 650 mg PO Q6H PRN PRN Reason: Headache/Pain, Scale 1-10 Last Admin: 07/05/25 11:02 Dose: 650 mg Al Hydroxide/Mg Hydroxide (Magnesium Hydrox/Alum Hydrox 30 Ml Oral.Susp) 30 ml PO Q6H PRN PRN Reason: Heartburn/Nausea Albuterol Sulfate (Albuterol Sulfate 90 Mcg 8 Gm Inhaler) 2 puff INHALE Q4H PRN PRN Reason: Wheezing Clonidine HCl (Clonidine Hcl 0.1 Mg Tablet) 0.1 mg PO BID [facility]; Protocol Last Admin: 07/09/25 08:44 Dose: 0.1 mg Clonidine HCl (Clonidine Hcl 0.1 Mg Tablet) 0.1 mg PO Q4H PRN; Protocol PRN Reason: moderate anxiety Gabapentin (Gabapentin 100 Mg Capsule) 100 mg PO TID [facility] Last Admin: 07/09/25 08:44 Dose: 100 mg Glucose (Glucose Gel 15 Gm Gel..Gram.) 15 gm PO Q15M PRN PRN Reason: per Hypoglycemia Standing Ord. Hydroxyzine HCl (Hydroxyzine Hcl 50 Mg Tablet) 50 mg PO BID PRN PRN Reason: Anxiety Last Admin: 07/08/25 11:07 Dose: 50 mg Magnesium Hydroxide (Milk Of Magnesia 30 Ml Oral.Susp) 30 ml PO DAILY PRN PRN Reason: Constipation Methadone HCl (Methadone Hcl 20 Mg/2 Ml Oral.Conc) 170 mg PO DAILY [facility] Last Admin: 07/09/25 07:50 Dose: 170 mg Mirtazapine (Mirtazapine 7.5 Mg Tablet) 7.5 mg PO BEDTIME [facility] Last Admin: 07/08/25 20:32 Dose: 7.5 mg Multi-Ingred Cream/Lotion/Oil/Oint (Mineral Oil/Petrolatum,White 106 Gm Tube) 1 appl TOPICAL TID PRN; Protocol PRN Reason: dry skin Last Admin: 07/09/25 08:45 Dose: 1 appl Nicotine Polacrilex (Nicotine Polacrilex 2 Mg Gum) 4 mg BUCCAL Q2H PRN PRN Reason: Nicotine Cravings Olanzapine (Olanzapine 5 Mg Tablet) 5 mg PO TID PRN PRN Reason: agitation Last Admin: 07/08/25 15:28 Dose: 5 mg Omeprazole (Omeprazole 20 Mg Capsule.Dr) 20 mg PO DAILY@0630 [facility] Last Admin: 07/09/25 06:36 Dose: 20 mg Trazodone HCl (Trazodone Hcl 50 Mg Tablet) 50 mg PO BEDTIME MRX1 PRN PRN Reason: Insomnia Triamcinolone Acetonide (Triamcinolone Acet 0.1 % Oint 15 Gm Tube) 1 appl TOPICAL BID [facility] Last Admin: 07/08/25 20:32 Dose: Not Given Venlafaxine HCl (Venlafaxine Hcl Er 75 Mg Cap.Er.24h) 75 mg PO DAILY [facility] Last Admin: 07/09/25 08:44 Dose: 75 mg Allergies Allergies Allergy/AdvReac Type Severity Reaction Status Date / Time bee pollen (BEE STINGS) Allergy Severe ANAPHYLAXIS Verified 07/03/25 20:23 codeine (CODEINE) Allergy Intermediate HIVES Verified 07/03/25 20:23 Penicillins (PENICILLINS) Allergy Intermediate HIVES Verified 07/03/25 20:23 Assessment & Plan Assessment & Plan (1) MDD (major depressive disorder), recurrent, severe, with psychosis: Status: Acute Code(s): F33.3 - Major depressive disorder, recurrent, severe with psychotic symptoms (2) PTSD (post-traumatic stress disorder): Status: Acute Code(s): F43.10 - Post-traumatic stress disorder, unspecified (3) Opioid use disorder: Status: Acute Code(s): F11.90 - Opioid use, unspecified, uncomplicated (4) Cocaine use disorder: Status: Acute Code(s): F14.10 - Cocaine abuse, uncomplicated (5) Homeless: Status: Acute Code(s): Z59.00 - Homelessness unspecified Plan HPI: Patient is a 55-year-old male with history of MDD, PTSD, heroin/cocaine use disorder, Hep C who presents for depression and suicide ideation. Patient was recently discharged from [facility], admitted there for depression and SI. On discharge he reports feeling a little better but depression remained. He remained homeless and went to stay at a friend's house however found out he was not able to remain there and faced with homelessness again, depression return, patient had AH he relapsed on heroin and cocaine and became suicidal. He asked his friend if he could have a gun to commit suicide; his friend of course did not give it to him and the 2 of them called 911. Patient denies history of manic type behaviors or episodes; endorses intermittent AH but only when feeling upset and emotional and mood congruent. Formulation/clinical reasoning: Long history of depression compounded by severe childhood trauma which has remained largely on processed; no significant medication trials. Patient started on mirtazapine which stayed at 7.5 mg and just use for sleep; otherwise history of clonidine, Xanax, Adderall... Patient asking for help, with medication and program for help with substance abuse. Reviewed risks/side effects and patient agreed to start on venlafaxine Hospital course: 07/06 Patient reports he remains depressed and anxious but is feeling better and grateful for the help received. Attending groups. Agrees to increase venlafaxine. Reiterates that he very much wants help getting into a program 07/07 Patient reports overall doing better, depression remains but definitely improving. Patient however reports getting quite anxious today. Not sure if it is due to increase in venlafaxine. Patient continues to engage in groups and work on coping skills. Discussed medication and will lower venlafaxine down again to see if this mitigates anxiety (many possible causes for anxiety; will monitor) 07/08 Reports mood is good, anxiety not too bad today. Reviewed plan with venlafaxine and patient will monitor for spikes in anxiety. Otherwise reports benefitting from groups and hopeful about getting into a program. -lowered venlafaxine to 37.5; will increase back to 75 mg Patient remains in good behavioral and impulse control; he is appropriate with peers and staff and engaged in treatment 07/09: Patient states that he feels so so. He reports severe, 7-8/10, anxiety and depressive symptoms 1 hour after taking his medications this morning. However, he states that his more anxious than depressed. He also endorses loss of appetite and hot and cold flashes. He states that his sleep was fragmented last night. He ate some of his breakfast this morning. He denies SI/HI/AVH. He experienced increased anxiety after venlafaxine was recently increased from 37.5 mg to 75 mg daily. The dose was lowered and increased again this morning....which coincides with the patient's increased anxiety and depressive symptoms. Will lower venlafaxine back to 37.5 mg to start tomorrow. Continue current treatment regimen. Verbalized understanding and agreed with the plan. Plan: CV Q 15 minute checks Continue mirtazapine 7.5 mg q.h.s. for insomnia (trazodone/Seroquel not effective) Venlafaxine ER 37.5 mg Clonidine p.r.n. Clonidine 0.1 mg b.i.d. home med Gabapentin 100 mg t.i.d. home medication Methadone 170 mg daily home medication . Patient educated on: therapeutic strategies Reason for continued inpatient stay Substantial Risk for: rapid decompensation Time Spent With Patient Time: Total time managing care of this patient today ____ minutes. Documented by User: Gus Morris MD 07/09/25 10:25 Subjective Subjective Reason For Visit: SI Diagnostics Labs 07/03/25 20:58 07/05/25 08:08 Assessment & Plan Assessment & Plan (1) MDD (major depressive disorder), recurrent, severe, with psychosis: Status: Acute Code(s): F33.3 - Major depressive disorder, recurrent, severe with psychotic symptoms (2) PTSD (post-traumatic stress disorder): Status: Acute Code(s): F43.10 - Post-traumatic stress disorder, unspecified (3) Opioid use disorder: Status: Acute Code(s): F11.90 - Opioid use, unspecified, uncomplicated (4) Cocaine use disorder: Status: Acute Code(s): F14.10 - Cocaine abuse, uncomplicated (5) Homeless: Status: Acute Code(s): Z59.00 - Homelessness unspecified Plan HPI: Patient is a 55-year-old male with history of MDD, PTSD, heroin/cocaine use disorder, Hep C who presents for depression and suicide ideation. Patient was recently discharged from [facility], admitted there for depression and SI. On discharge he reports feeling a little better but depression remained. He remained homeless and went to stay at a friend's house however found out he was not able to remain there and faced with homelessness again, depression return, patient had AH he relapsed on heroin and cocaine and became suicidal. He asked his friend if he could have a gun to commit suicide; his friend of course did not give it to him and the 2 of them called 911. Patient denies history of manic type behaviors or episodes; endorses intermittent AH but only when feeling upset and emotional and mood congruent. Formulation/clinical reasoning: Long history of depression compounded by severe childhood trauma which has remained largely on processed; no significant medication trials. Patient started on mirtazapine which stayed at 7.5 mg and just use for sleep; otherwise history of clonidine, Xanax, Adderall... Patient asking for help, with medication and program for help with substance abuse. Reviewed risks/side effects and patient agreed to start on venlafaxine Hospital course: 07/06 Patient reports he remains depressed and anxious but is feeling better and grateful for the help received. Attending groups. Agrees to increase venlafaxine. Reiterates that he very much wants help getting into a program 07/07 Patient reports overall doing better, depression remains but definitely improving. Patient however reports getting quite anxious today. Not sure if it is due to increase in venlafaxine. Patient continues to engage in groups and work on coping skills. Discussed medication and will lower venlafaxine down again to see if this mitigates anxiety (many possible causes for anxiety; will monitor) 07/08 Reports mood is good, anxiety not too bad today. Reviewed plan with venlafaxine and patient will monitor for spikes in anxiety. Otherwise reports benefitting from groups and hopeful about getting into a program. -lowered venlafaxine to 37.5; will increase back to 75 mg Patient remains in good behavioral and impulse control; he is appropriate with peers and staff and engaged in treatment Plan: CV Q 15 minute checks Continue mirtazapine 7.5 mg q.h.s. for insomnia (trazodone/Seroquel not effective) Venlafaxine ER 75 mg Clonidine p.r.n. Clonidine 0.1 mg b.i.d. home med Gabapentin 100 mg t.i.d. home medication Methadone 170 mg daily home medication .
[2025-07-09] MEDS: Triamcinolone Acet 0.1 % Oint 15 GM TUBE 1 APPL TOPICAL ×2 (11:57→20:31)
[2025-07-09 19:57] VITALS: BP 128/97; PULSE 70; RESP 18; TEMP 36.6; O2SAT 96
[2025-07-10 08:00] VITALS: BP 138/88; PULSE 67; RESP 16; TEMP 36.4; O2SAT 98
[2025-07-10] MEDS: methADONE HCl 20 MG/2 ML ORAL.CONC 170 MG PO (08:11)
[2025-07-10 09:04] VITALS: BP 138/88
[2025-07-10] MEDS: Venlafaxine HCl ER 37.5 MG CAP.ER.24H PO (09:04)
--- NOTE | 2025-07-10 09:21 | HO.PSYCHPN ---
Subjective Subjective Date of Service: 07/10/25 Reason For Visit: SI Interim History: Met with patient; discussed with team Patient says he is so-so then still anxious and depressed though made much improved since admission. Discussed response to Effexor and patient agrees to discontinue completely and start Zoloft. Mental Status Exam Mental Status Exam Narrative: :Pt is alert and oriented; behavior is social, in good behavioral and impulse control; cooperative, polite, friendly; patient is not in distress; dressed in casual attire; mood is described as so-so and affect congruent; eye contact appropriate; Speech is normal rate, volume and prosody and not pressured; psychomotor retardation remain; thought process is organized and goal directed; Thought content is on dealing with psychosocial stressors, tx; otherwise pertinent to relevant topics and without any delusional content, paranoid ideations or grandiosity; no SI; no HI. Denies AVH and there is no evidence of perceptual disturbance. Patients insight and judgment fair Diagnostics Vital Signs (24Hr): Vital Signs - 24 hr 07/09/25 19:57 07/10/25 08:00 07/10/25 09:04 Temperature 97.9 F 97.6 F Pulse Rate 70 67 Respiratory Rate 18 16 Blood Pressure 128/97 H 138/88 138/88 Pulse Oximetry 96 98 Oxygen Delivery Method Room Air Room Air BMI result Body Mass Index 24.1 Labs 07/03/25 20:58 07/05/25 08:08 Medications Medications Current Medications Acetaminophen (Acetaminophen 325 Mg Tablet) 650 mg PO Q6H PRN PRN Reason: Headache/Pain, Scale 1-10 Last Admin: 07/05/25 11:02 Dose: 650 mg Al Hydroxide/Mg Hydroxide (Magnesium Hydrox/Alum Hydrox 30 Ml Oral.Susp) 30 ml PO Q6H PRN PRN Reason: Heartburn/Nausea Albuterol Sulfate (Albuterol Sulfate 90 Mcg 8 Gm Inhaler) 2 puff INHALE Q4H PRN PRN Reason: Wheezing Clonidine HCl (Clonidine Hcl 0.1 Mg Tablet) 0.1 mg PO BID [facility]; Protocol Last Admin: 07/10/25 09:04 Dose: 0.1 mg Clonidine HCl (Clonidine Hcl 0.1 Mg Tablet) 0.1 mg PO Q4H PRN; Protocol PRN Reason: moderate anxiety Gabapentin (Gabapentin 100 Mg Capsule) 100 mg PO TID [facility] Last Admin: 07/10/25 09:04 Dose: 100 mg Glucose (Glucose Gel 15 Gm Gel..Gram.) 15 gm PO Q15M PRN PRN Reason: per Hypoglycemia Standing Ord. Hydroxyzine HCl (Hydroxyzine Hcl 50 Mg Tablet) 50 mg PO BID PRN PRN Reason: Anxiety Last Admin: 07/09/25 14:04 Dose: 50 mg Magnesium Hydroxide (Milk Of Magnesia 30 Ml Oral.Susp) 30 ml PO DAILY PRN PRN Reason: Constipation Methadone HCl (Methadone Hcl 20 Mg/2 Ml Oral.Conc) 170 mg PO DAILY [facility] Last Admin: 07/10/25 08:11 Dose: 170 mg Mirtazapine (Mirtazapine 7.5 Mg Tablet) 7.5 mg PO BEDTIME [facility] Last Admin: 07/09/25 20:30 Dose: 7.5 mg Multi-Ingred Cream/Lotion/Oil/Oint (Mineral Oil/Petrolatum,White 106 Gm Tube) 1 appl TOPICAL TID PRN; Protocol PRN Reason: dry skin Last Admin: 07/09/25 08:45 Dose: 1 appl Nicotine Polacrilex (Nicotine Polacrilex 2 Mg Gum) 4 mg BUCCAL Q2H PRN PRN Reason: Nicotine Cravings Olanzapine (Olanzapine 5 Mg Tablet) 5 mg PO TID PRN PRN Reason: agitation Last Admin: 07/09/25 11:59 Dose: 5 mg Omeprazole (Omeprazole 20 Mg Capsule.Dr) 20 mg PO DAILY@0630 [facility] Last Admin: 07/10/25 06:27 Dose: 20 mg Trazodone HCl (Trazodone Hcl 50 Mg Tablet) 50 mg PO BEDTIME MRX1 PRN PRN Reason: Insomnia Triamcinolone Acetonide (Triamcinolone Acet 0.1 % Oint 15 Gm Tube) 1 appl TOPICAL BID [facility] Last Admin: 07/10/25 09:04 Dose: Not Given Allergies Allergies Allergy/AdvReac Type Severity Reaction Status Date / Time bee pollen (BEE STINGS) Allergy Severe ANAPHYLAXIS Verified 07/03/25 20:23 codeine (CODEINE) Allergy Intermediate HIVES Verified 07/03/25 20:23 Penicillins (PENICILLINS) Allergy Intermediate HIVES Verified 07/03/25 20:23 Assessment & Plan Assessment & Plan (1) MDD (major depressive disorder), recurrent, severe, with psychosis: Status: Acute Code(s): F33.3 - Major depressive disorder, recurrent, severe with psychotic symptoms (2) PTSD (post-traumatic stress disorder): Status: Acute Code(s): F43.10 - Post-traumatic stress disorder, unspecified (3) Opioid use disorder: Status: Acute Code(s): F11.90 - Opioid use, unspecified, uncomplicated (4) Cocaine use disorder: Status: Acute Code(s): F14.10 - Cocaine abuse, uncomplicated (5) Homeless: Status: Acute Code(s): Z59.00 - Homelessness unspecified Plan HPI: Patient is a 55-year-old male with history of MDD, PTSD, heroin/cocaine use disorder, Hep C who presents for depression and suicide ideation. Patient was recently discharged from [facility], admitted there for depression and SI. On discharge he reports feeling a little better but depression remained. He remained homeless and went to stay at a friend's house however found out he was not able to remain there and faced with homelessness again, depression return, patient had AH he relapsed on heroin and cocaine and became suicidal. He asked his friend if he could have a gun to commit suicide; his friend of course did not give it to him and the 2 of them called 911. Patient denies history of manic type behaviors or episodes; endorses intermittent AH but only when feeling upset and emotional and mood congruent. Formulation/clinical reasoning: Long history of depression compounded by severe childhood trauma which has remained largely on processed; no significant medication trials. Patient started on mirtazapine which stayed at 7.5 mg and just use for sleep; otherwise history of clonidine, Xanax, Adderall... Patient asking for help, with medication and program for help with substance abuse. Reviewed risks/side effects and patient agreed to start on venlafaxine Hospital course: 07/06 Patient reports he remains depressed and anxious but is feeling better and grateful for the help received. Attending groups. Agrees to increase venlafaxine. Reiterates that he very much wants help getting into a program 07/07 Patient reports overall doing better, depression remains but definitely improving. Patient however reports getting quite anxious today. Not sure if it is due to increase in venlafaxine. Patient continues to engage in groups and work on coping skills. Discussed medication and will lower venlafaxine down again to see if this mitigates anxiety (many possible causes for anxiety; will monitor) 07/08 Reports mood is good, anxiety not too bad today. Reviewed plan with venlafaxine and patient will monitor for spikes in anxiety. Otherwise reports benefitting from groups and hopeful about getting into a program. -lowered venlafaxine to 37.5; will increase back to 75 mg 07/09: Patient states that he feels so so. He reports severe, 7-8/10, anxiety and depressive symptoms 1 hour after taking his medications this morning. However, he states that his more anxious than depressed. He also endorses loss of appetite and hot and cold flashes. He states that his sleep was fragmented last night. He ate some of his breakfast this morning. He denies SI/HI/AVH. He experienced increased anxiety after venlafaxine was recently increased from 37.5 mg to 75 mg daily. The dose was lowered and increased again this morning....which coincides with the patient's increased anxiety and depressive symptoms. Will lower venlafaxine back to 37.5 mg to start tomorrow. Continue current treatment regimen. Verbalized understanding and agreed with the plan. 07/10 Effexor seems to spike anxiety; patient agrees to discontinuing started Zoloft Patient remains in good behavioral and impulse control; he is appropriate with peers and staff and engaged in treatment Plan: CV Q 15 minute checks Continue mirtazapine 7.5 mg q.h.s. for insomnia (trazodone/Seroquel not effective) Start Zoloft 25 mg; titrate to 50 and higher DC Venlafaxine ER causes anxiety Clonidine p.r.n. Clonidine 0.1 mg b.i.d. home med Gabapentin 100 mg t.i.d. home medication Methadone 170 mg daily home medication . Patient educated on: diagnosis and medication risk/benefits Informed Consent: understands Reason for continued inpatient stay Substantial Risk for: stable for discharge and rapid decompensation Time Spent With Patient Time: Total time managing care of this patient today ____ minutes.
[2025-07-10 20:00] VITALS: BP 120/74; PULSE 67; TEMP 37.1; O2SAT 97
[2025-07-10 20:12] VITALS: BP 120/74
--- NOTE | 2025-07-11 07:03 | P.PNPSI_ITS ---
Subjective Subjective Date of Service: 07/11/25 Reason For Visit: SI Interim History: patient reports still feeling anxious and depressed and felt that Zoloft has made things worse and that he did not sleep well last night, restless and jittery. Reports having nightmares and jumped out of bed at 1 point which has never done before. Believes this is related to Zoloft and did not want to continue this. Also concerned regarding his blood pressure has been elevated and unsure if that is due to hypertension or anxiety. Reports clonidine as needed doses have been drying out his mouth. Reports he was previously on alprazolam many years ago which was helpful. From a med perspective agreed to discontinue Zoloft and will increase mirtazapine from 7.5 mg to 15 mg. On chart review rather than utilizing benzodiazepine, given predisposition to addiction for/ dependence will increase gabapentin to 400 mg 3 times per day and olanzapine 5 mg as needed up to 4 times per day. Review of Systems Review of Systems unremarkable Mental Status Exam Mental Status Exam Narrative: alert and oriented; behavior is social, in good behavioral and impulse control; cooperative, polite, friendly; patient is not in distress; dressed in casual attire; mood is described as not great and affect congruent; eye contact appropriate; Speech is normal rate, volume and prosody and not pressured; thought process is organized and goal directed; Thought content is on dealing with psychosocial stressors, tx; otherwise pertinent to relevant topics and without any delusional content, paranoid ideations or grandiosity; no SI; no HI. Denies AVH and there is no evidence of perceptual disturbance. Patients insight and judgment fair Diagnostics Vital Signs (24Hr): Vital Signs - 24 hr 07/10/25 08:00 07/10/25 09:04 07/10/25 20:00 Temperature 97.6 F 98.8 F Pulse Rate 67 67 Respiratory Rate 16 Blood Pressure 138/88 138/88 120/74 Pulse Oximetry 98 97 Oxygen Delivery Method Room Air Room Air 07/10/25 20:12 Temperature Pulse Rate Respiratory Rate Blood Pressure 120/74 Pulse Oximetry Oxygen Delivery Method BMI result Body Mass Index 24.1 Labs 07/03/25 20:58 07/05/25 08:08 Medications Medications Current Medications Acetaminophen (Acetaminophen 325 Mg Tablet) 650 mg PO Q6H PRN PRN Reason: Headache/Pain, Scale 1-10 Last Admin: 07/05/25 11:02 Dose: 650 mg Al Hydroxide/Mg Hydroxide (Magnesium Hydrox/Alum Hydrox 30 Ml Oral.Susp) 30 ml PO Q6H PRN PRN Reason: Heartburn/Nausea Albuterol Sulfate (Albuterol Sulfate 90 Mcg 8 Gm Inhaler) 2 puff INHALE Q4H PRN PRN Reason: Wheezing Clonidine HCl (Clonidine Hcl 0.1 Mg Tablet) 0.1 mg PO BID [facility]; Protocol Last Admin: 07/10/25 20:12 Dose: 0.1 mg Clonidine HCl (Clonidine Hcl 0.1 Mg Tablet) 0.1 mg PO Q4H PRN; Protocol PRN Reason: moderate anxiety Gabapentin (Gabapentin 300 Mg Capsule) 300 mg PO TID [facility] Last Admin: 07/10/25 20:12 Dose: 300 mg Glucose (Glucose Gel 15 Gm Gel..Gram.) 15 gm PO Q15M PRN PRN Reason: per Hypoglycemia Standing Ord. Hydroxyzine HCl (Hydroxyzine Hcl 50 Mg Tablet) 50 mg PO BID PRN PRN Reason: Anxiety Last Admin: 07/10/25 16:29 Dose: 50 mg Magnesium Hydroxide (Milk Of Magnesia 30 Ml Oral.Susp) 30 ml PO DAILY PRN PRN Reason: Constipation Methadone HCl (Methadone Hcl 20 Mg/2 Ml Oral.Conc) 170 mg PO DAILY [facility] Last Admin: 07/10/25 08:11 Dose: 170 mg Mirtazapine (Mirtazapine 7.5 Mg Tablet) 7.5 mg PO BEDTIME [facility] Last Admin: 07/10/25 20:12 Dose: 7.5 mg Multi-Ingred Cream/Lotion/Oil/Oint (Mineral Oil/Petrolatum,White 106 Gm Tube) 1 appl TOPICAL TID PRN; Protocol PRN Reason: dry skin Last Admin: 07/09/25 08:45 Dose: 1 appl Nicotine Polacrilex (Nicotine Polacrilex 2 Mg Gum) 4 mg BUCCAL Q2H PRN PRN Reason: Nicotine Cravings Olanzapine (Olanzapine 5 Mg Tablet) 5 mg PO TID PRN PRN Reason: agitation Last Admin: 07/09/25 11:59 Dose: 5 mg Omeprazole (Omeprazole 20 Mg Capsule.Dr) 20 mg PO DAILY@0630 [facility] Last Admin: 07/10/25 06:27 Dose: 20 mg Sertraline HCl (Sertraline Hcl 50 Mg Tablet) 50 mg PO DAILY [facility] Trazodone HCl (Trazodone Hcl 50 Mg Tablet) 50 mg PO BEDTIME MRX1 PRN PRN Reason: Insomnia Triamcinolone Acetonide (Triamcinolone Acet 0.1 % Oint 15 Gm Tube) 1 appl TOPICAL BID [facility] Last Admin: 07/10/25 20:11 Dose: Not Given Allergies Allergies Allergy/AdvReac Type Severity Reaction Status Date / Time bee pollen (BEE STINGS) Allergy Severe ANAPHYLAXIS Verified 07/03/25 20:23 codeine (CODEINE) Allergy Intermediate HIVES Verified 07/03/25 20:23 Penicillins (PENICILLINS) Allergy Intermediate HIVES Verified 07/03/25 20:23 Assessment & Plan Assessment & Plan (1) MDD (major depressive disorder), recurrent, severe, with psychosis: Status: Acute Code(s): F33.3 - Major depressive disorder, recurrent, severe with psychotic symptoms (2) PTSD (post-traumatic stress disorder): Status: Acute Code(s): F43.10 - Post-traumatic stress disorder, unspecified (3) Opioid use disorder: Status: Acute Code(s): F11.90 - Opioid use, unspecified, uncomplicated (4) Cocaine use disorder: Status: Acute Code(s): F14.10 - Cocaine abuse, uncomplicated (5) Homeless: Status: Acute Code(s): Z59.00 - Homelessness unspecified Plan HPI: Patient is a 55-year-old male with history of MDD, PTSD, heroin/cocaine use disorder, Hep C who presents for depression and suicide ideation. Patient was recently discharged from [facility], admitted there for depression and SI. On discharge he reports feeling a little better but depression remained. He remained homeless and went to stay at a friend's house however found out he was not able to remain there and faced with homelessness again, depression return, patient had AH he relapsed on heroin and cocaine and became suicidal. He asked his friend if he could have a gun to commit suicide; his friend of course did not give it to him and the 2 of them called 911. Patient denies history of manic type behaviors or episodes; endorses intermittent AH but only when feeling upset and emotional and mood congruent. Formulation/clinical reasoning: Long history of depression compounded by severe childhood trauma which has remained largely on processed; no significant medication trials. Patient started on mirtazapine which stayed at 7.5 mg and just use for sleep; otherwise history of clonidine, Xanax, Adderall... Patient asking for help, with medication and program for help with substance abuse. Reviewed risks/side effects and patient agreed to start on venlafaxine Hospital course: 07/06 Patient reports he remains depressed and anxious but is feeling better and grateful for the help received. Attending groups. Agrees to increase venlafaxine. Reiterates that he very much wants help getting into a program 07/07 Patient reports overall doing better, depression remains but definitely improving. Patient however reports getting quite anxious today. Not sure if it is due to increase in venlafaxine. Patient continues to engage in groups and work on coping skills. Discussed medication and will lower venlafaxine down again to see if this mitigates anxiety (many possible causes for anxiety; will monitor) 07/08 Reports mood is good, anxiety not too bad today. Reviewed plan with venlafaxine and patient will monitor for spikes in anxiety. Otherwise reports benefitting from groups and hopeful about getting into a program. -lowered venlafaxine to 37.5; will increase back to 75 mg 07/09: Patient states that he feels so so. He reports severe, 7-04/12, anxiety and depressive symptoms 1 hour after taking his medications this morning. However, he states that his more anxious than depressed. He also endorses loss of appetite and hot and cold flashes. He states that his sleep was fragmented last night. He ate some of his breakfast this morning. He denies SI/HI/AVH. He experienced increased anxiety after venlafaxine was recently increased from 37.5 mg to 75 mg daily. The dose was lowered and increased again this morning....which coincides with the patient's increased anxiety and depressive symptoms. Will lower venlafaxine back to 37.5 mg to start tomorrow. Continue current treatment regimen. Verbalized understanding and agreed with the plan. 07/10 Effexor seems to spike anxiety; patient agrees to discontinuing started Zoloft 07/11: From a med perspective agreed to discontinue Zoloft and will increase mirtazapine from 7.5 mg to 15 mg. On chart review rather than utilizing benzodiazepine, given predisposition to addiction for/ dependence will increase gabapentin to 400 mg 3 times per day and olanzapine 5 mg as needed up to 4 times per day. Patient remains in good behavioral and impulse control; he is appropriate with peers and staff and engaged in treatment Plan: CV Q 15 minute checks Continue mirtazapine 7.5 mg q.h.s. for insomnia (trazodone/Seroquel not effective) Start Zoloft 25 mg; titrate to 50 and higher DC Venlafaxine ER causes anxiety Clonidine p.r.n. Clonidine 0.1 mg b.i.d. home med Gabapentin 100 mg t.i.d. home medication Methadone 170 mg daily home medication . Reason for continued inpatient stay Substantial Risk for: rapid decompensation Time Spent With Patient Time: Total time managing care of this patient today ____ minutes.
[2025-07-11] MEDS: methADONE HCl 20 MG/2 ML ORAL.CONC 170 MG PO (07:52)
[2025-07-11 08:00] VITALS: BP 130/82; PULSE 71; TEMP 37.1; O2SAT 97
[2025-07-11 08:40] VITALS: BP 130/82
[2025-07-11] MEDS: Triamcinolone Acet 0.1 % Oint 15 GM TUBE 1 APPL TOPICAL (08:43)
[2025-07-11 11:56] VITALS: BP 140/88
[2025-07-11 18:41] VITALS: BP 106/85
[2025-07-11 20:00] VITALS: BP 126/71; PULSE 63; RESP 18; TEMP 36.5; O2SAT 95
[2025-07-11 20:15] VITALS: BP 126/71
[2025-07-12] MEDS: methADONE HCl 20 MG/2 ML ORAL.CONC 170 MG PO (07:59)
[2025-07-12 08:00] VITALS: BP 116/63; PULSE 74; RESP 20; TEMP 36.8; O2SAT 96
--- NOTE | 2025-07-12 08:00 | HO.PSYCHPN ---
Subjective Subjective Date of Service: 07/12/25 Reason For Visit: SI Interim History: Patient reports still feeling anxious and depressed and had nightmares again last night- attributes to zoloft. Agreed to trial prazosin. Tolerating increased remeron. Also utizling prn regimens for anxiety. Medication Compliance: Yes Side effects from medications: No Attending Groups: Intermittent Review of Systems Acute medical concerns: No Review of Systems Review of Systems unremarkable Mental Status Exam Mental Status Exam Narrative: alert and oriented; behavior is social, in good behavioral and impulse control; cooperative, polite, friendly; patient is not in distress; dressed in casual attire; mood is described as anxious and affect congruent; eye contact appropriate; Speech is normal rate, volume and prosody and not pressured; thought process is organized and goal directed; Thought content is on dealing with psychosocial stressors, tx; otherwise pertinent to relevant topics and without any delusional content, paranoid ideations or grandiosity; no SI; no HI. Denies AVH and there is no evidence of perceptual disturbance. Patients insight and judgment fair Diagnostics Vital Signs (24Hr): Vital Signs - 24 hr 07/11/25 08:40 07/11/25 11:56 07/11/25 18:41 Temperature Pulse Rate Respiratory Rate Blood Pressure 130/82 140/88 H 106/85 Pulse Oximetry Oxygen Delivery Method 07/11/25 18:41 07/11/25 20:00 07/11/25 20:15 Temperature 97.7 F Pulse Rate 63 Respiratory Rate 18 Blood Pressure 106/85 126/71 126/71 Pulse Oximetry 95 Oxygen Delivery Method Room Air BMI result Body Mass Index 24.1 Labs 07/03/25 20:58 07/05/25 08:08 Medications Medications Current Medications Acetaminophen (Acetaminophen 325 Mg Tablet) 650 mg PO Q6H PRN PRN Reason: Headache/Pain, Scale 1-10 Last Admin: 07/05/25 11:02 Dose: 650 mg Al Hydroxide/Mg Hydroxide (Magnesium Hydrox/Alum Hydrox 30 Ml Oral.Susp) 30 ml PO Q6H PRN PRN Reason: Heartburn/Nausea Albuterol Sulfate (Albuterol Sulfate 90 Mcg 8 Gm Inhaler) 2 puff INHALE Q4H PRN PRN Reason: Wheezing Amlodipine Besylate (Amlodipine Besylate 5 Mg Tablet) 5 mg PO DAILY [facility]; Protocol Last Admin: 07/11/25 18:41 Dose: 5 mg Clonidine HCl (Clonidine Hcl 0.1 Mg Tablet) 0.1 mg PO BID [facility]; Protocol Last Admin: 07/11/25 20:15 Dose: 0.1 mg Clonidine HCl (Clonidine Hcl 0.1 Mg Tablet) 0.1 mg PO Q4H PRN; Protocol PRN Reason: moderate anxiety Last Admin: 07/11/25 18:41 Dose: 0.1 mg Gabapentin (Gabapentin 400 Mg Capsule) 400 mg PO TID [facility] Last Admin: 07/11/25 20:12 Dose: 400 mg Glucose (Glucose Gel 15 Gm Gel..Gram.) 15 gm PO Q15M PRN PRN Reason: per Hypoglycemia Standing Ord. Hydroxyzine HCl (Hydroxyzine Hcl 50 Mg Tablet) 50 mg PO BID PRN PRN Reason: Anxiety Last Admin: 07/11/25 20:11 Dose: 50 mg Magnesium Hydroxide (Milk Of Magnesia 30 Ml Oral.Susp) 30 ml PO DAILY PRN PRN Reason: Constipation Methadone HCl (Methadone Hcl 20 Mg/2 Ml Oral.Conc) 170 mg PO DAILY [facility] Last Admin: 07/11/25 07:52 Dose: 170 mg Mirtazapine (Mirtazapine 15 Mg Tablet) 15 mg PO BEDTIME [facility] Last Admin: 07/11/25 20:12 Dose: 15 mg Multi-Ingred Cream/Lotion/Oil/Oint (Mineral Oil/Petrolatum,White 106 Gm Tube) 1 appl TOPICAL TID PRN; Protocol PRN Reason: dry skin Last Admin: 07/09/25 08:45 Dose: 1 appl Nicotine Polacrilex (Nicotine Polacrilex 2 Mg Gum) 4 mg BUCCAL Q2H PRN PRN Reason: Nicotine Cravings Olanzapine (Olanzapine 5 Mg Tablet) 5 mg PO Q6H PRN PRN Reason: agitation Omeprazole (Omeprazole 20 Mg Capsule.Dr) 20 mg PO DAILY@0630 [facility] Last Admin: 07/12/25 06:21 Dose: 20 mg Trazodone HCl (Trazodone Hcl 50 Mg Tablet) 50 mg PO BEDTIME PRN PRN Reason: Insomnia Triamcinolone Acetonide (Triamcinolone Acet 0.1 % Oint 15 Gm Tube) 1 appl TOPICAL BID [facility] Last Admin: 07/11/25 20:54 Dose: Not Given Allergies Allergies Allergy/AdvReac Type Severity Reaction Status Date / Time bee pollen (BEE STINGS) Allergy Severe ANAPHYLAXIS Verified 07/03/25 20:23 codeine (CODEINE) Allergy Intermediate HIVES Verified 07/03/25 20:23 Penicillins (PENICILLINS) Allergy Intermediate HIVES Verified 07/03/25 20:23 Assessment & Plan Assessment & Plan (1) MDD (major depressive disorder), recurrent, severe, with psychosis: Status: Acute Code(s): F33.3 - Major depressive disorder, recurrent, severe with psychotic symptoms (2) PTSD (post-traumatic stress disorder): Status: Acute Code(s): F43.10 - Post-traumatic stress disorder, unspecified (3) Opioid use disorder: Status: Acute Code(s): F11.90 - Opioid use, unspecified, uncomplicated (4) Cocaine use disorder: Status: Acute Code(s): F14.10 - Cocaine abuse, uncomplicated (5) Homeless: Status: Acute Code(s): Z59.00 - Homelessness unspecified Plan HPI: Patient is a 55-year-old male with history of MDD, PTSD, heroin/cocaine use disorder, Hep C who presents for depression and suicide ideation. Patient was recently discharged from [facility], admitted there for depression and SI. On discharge he reports feeling a little better but depression remained. He remained homeless and went to stay at a friend's house however found out he was not able to remain there and faced with homelessness again, depression return, patient had AH he relapsed on heroin and cocaine and became suicidal. He asked his friend if he could have a gun to commit suicide; his friend of course did not give it to him and the 2 of them called 911. Patient denies history of manic type behaviors or episodes; endorses intermittent AH but only when feeling upset and emotional and mood congruent. Formulation/clinical reasoning: Long history of depression compounded by severe childhood trauma which has remained largely on processed; no significant medication trials. Patient started on mirtazapine which stayed at 7.5 mg and just use for sleep; otherwise history of clonidine, Xanax, Adderall... Patient asking for help, with medication and program for help with substance abuse. Reviewed risks/side effects and patient agreed to start on venlafaxine Hospital course: 07/06 Patient reports he remains depressed and anxious but is feeling better and grateful for the help received. Attending groups. Agrees to increase venlafaxine. Reiterates that he very much wants help getting into a program 07/07 Patient reports overall doing better, depression remains but definitely improving. Patient however reports getting quite anxious today. Not sure if it is due to increase in venlafaxine. Patient continues to engage in groups and work on coping skills. Discussed medication and will lower venlafaxine down again to see if this mitigates anxiety (many possible causes for anxiety; will monitor) 07/08 Reports mood is good, anxiety not too bad today. Reviewed plan with venlafaxine and patient will monitor for spikes in anxiety. Otherwise reports benefitting from groups and hopeful about getting into a program. -lowered venlafaxine to 37.5; will increase back to 75 mg 07/09: Patient states that he feels so so. He reports severe, 7-8/10, anxiety and depressive symptoms 1 hour after taking his medications this morning. However, he states that his more anxious than depressed. He also endorses loss of appetite and hot and cold flashes. He states that his sleep was fragmented last night. He ate some of his breakfast this morning. He denies SI/HI/AVH. He experienced increased anxiety after venlafaxine was recently increased from 37.5 mg to 75 mg daily. The dose was lowered and increased again this morning....which coincides with the patient's increased anxiety and depressive symptoms. Will lower venlafaxine back to 37.5 mg to start tomorrow. Continue current treatment regimen. Verbalized understanding and agreed with the plan. 07/10 Effexor seems to spike anxiety; patient agrees to discontinuing started Zoloft 07/11: From a med perspective agreed to discontinue Zoloft and will increase mirtazapine from 7.5 mg to 15 mg. On chart review rather than utilizing benzodiazepine, given predisposition to addiction for/ dependence will increase gabapentin to 400 mg 3 times per day and olanzapine 5 mg as needed up to 4 times per day. 07/12: trial prazosin for ongoing nightmares Patient remains in good behavioral and impulse control; he is appropriate with peers and staff and engaged in treatment Plan: CV Q 15 minute checks Continue mirtazapine 7.5 mg q.h.s. for insomnia (trazodone/Seroquel not effective) Start Zoloft 25 mg; titrate to 50 and higher DC Venlafaxine ER causes anxiety Clonidine p.r.n. Clonidine 0.1 mg b.i.d. home med Gabapentin 100 mg t.i.d. home medication Methadone 170 mg daily home medication . Reason for continued inpatient stay Substantial Risk for: rapid decompensation Time Spent With Patient Time: Total time managing care of this patient today ____ minutes.
[2025-07-12 09:00] VITALS: BP 116/63
[2025-07-12 20:20] VITALS: BP 116/68
[2025-07-12 20:21] VITALS: BP 116/68
[2025-07-12 20:23] VITALS: BP 116/68; PULSE 67; RESP 18; TEMP 36.5; O2SAT 95
[2025-07-13] MEDS: methADONE HCl 20 MG/2 ML ORAL.CONC 170 MG PO (07:48)
[2025-07-13 08:00] VITALS: BP 141/67; PULSE 88; RESP 18; TEMP 36.9; O2SAT 98
--- NOTE | 2025-07-13 09:52 | P.PNPSI_ITS ---
Subjective Subjective Date of Service: 07/13/25 Reason For Visit: SI Interim History: met with pt; discussed with team; reviewed chart Patient reports struggling with anxiety and depression and how Zoloft was not helpful;l discussed very limited history of medication trials and revisited patient is use of Latuda which he said was helping when discharged from [facility]. Patient would like to get back on that and agrees to restart Mental Status Exam Mental Status Exam Narrative: Pt is alert and oriented; behavior is social, in good behavioral and impulse control; cooperative, polite, friendly; patient is not in distress; dressed in casual attire; mood is described as anxious and affect congruent; eye contact appropriate; Speech is normal rate, volume and prosody and not pressured; psychomotor retardation remain; thought process is organized and goal directed; Thought content is on dealing with psychosocial stressors, tx; otherwise pertinent to relevant topics and without any delusional content, paranoid ideations or grandiosity; no SI; no HI. Denies AVH and there is no evidence of perceptual disturbance. Patients insight and judgment fair Diagnostics Vital Signs (24Hr): Vital Signs - 24 hr 07/12/25 20:20 07/12/25 20:21 07/12/25 20:23 Temperature 97.7 F Pulse Rate 67 Respiratory Rate 18 Blood Pressure 116/68 116/68 116/68 Pulse Oximetry 95 Oxygen Delivery Method Room Air 07/13/25 08:00 Temperature 98.4 F Pulse Rate 88 Respiratory Rate 18 Blood Pressure 141/67 H Pulse Oximetry 98 Oxygen Delivery Method Room Air BMI result Body Mass Index 24.1 Labs 07/03/25 20:58 07/05/25 08:08 Medications Medications Current Medications Acetaminophen (Acetaminophen 325 Mg Tablet) 650 mg PO Q6H PRN PRN Reason: Headache/Pain, Scale 1-10 Last Admin: 07/05/25 11:02 Dose: 650 mg Al Hydroxide/Mg Hydroxide (Magnesium Hydrox/Alum Hydrox 30 Ml Oral.Susp) 30 ml PO Q6H PRN PRN Reason: Heartburn/Nausea Albuterol Sulfate (Albuterol Sulfate 90 Mcg 8 Gm Inhaler) 2 puff INHALE Q4H PRN PRN Reason: Wheezing Amlodipine Besylate (Amlodipine Besylate 5 Mg Tablet) 5 mg PO DAILY [facility]; Protocol Last Admin: 07/13/25 08:57 Dose: 5 mg Clonidine HCl (Clonidine Hcl 0.1 Mg Tablet) 0.1 mg PO BID [facility]; Protocol Last Admin: 07/13/25 08:58 Dose: 0.1 mg Clonidine HCl (Clonidine Hcl 0.1 Mg Tablet) 0.1 mg PO Q4H PRN; Protocol PRN Reason: moderate anxiety Last Admin: 07/11/25 18:41 Dose: 0.1 mg Gabapentin (Gabapentin 400 Mg Capsule) 400 mg PO TID [facility] Last Admin: 07/13/25 08:58 Dose: 400 mg Glucose (Glucose Gel 15 Gm Gel..Gram.) 15 gm PO Q15M PRN PRN Reason: per Hypoglycemia Standing Ord. Hydroxyzine HCl (Hydroxyzine Hcl 50 Mg Tablet) 50 mg PO BID PRN PRN Reason: Anxiety Last Admin: 07/12/25 11:40 Dose: 50 mg Magnesium Hydroxide (Milk Of Magnesia 30 Ml Oral.Susp) 30 ml PO DAILY PRN PRN Reason: Constipation Methadone HCl (Methadone Hcl 20 Mg/2 Ml Oral.Conc) 170 mg PO DAILY [facility] Last Admin: 07/13/25 07:48 Dose: 170 mg Mirtazapine (Mirtazapine 15 Mg Tablet) 15 mg PO BEDTIME [facility] Last Admin: 07/12/25 20:20 Dose: 15 mg Multi-Ingred Cream/Lotion/Oil/Oint (Mineral Oil/Petrolatum,White 106 Gm Tube) 1 appl TOPICAL TID PRN; Protocol PRN Reason: dry skin Last Admin: 07/09/25 08:45 Dose: 1 appl Nicotine Polacrilex (Nicotine Polacrilex 2 Mg Gum) 4 mg BUCCAL Q2H PRN PRN Reason: Nicotine Cravings Olanzapine (Olanzapine 5 Mg Tablet) 5 mg PO Q6H PRN PRN Reason: agitation Last Admin: 07/12/25 15:22 Dose: 5 mg Omeprazole (Omeprazole 20 Mg Capsule.Dr) 20 mg PO DAILY@0630 [facility] Last Admin: 07/13/25 06:17 Dose: 20 mg Prazosin HCl (Prazosin Hcl 1 Mg Capsule) 2 mg PO BEDTIME [facility]; Protocol Last Admin: 07/12/25 20:21 Dose: 2 mg Trazodone HCl (Trazodone Hcl 50 Mg Tablet) 50 mg PO BEDTIME PRN PRN Reason: Insomnia Triamcinolone Acetonide (Triamcinolone Acet 0.1 % Oint 15 Gm Tube) 1 appl TOPICAL BID [facility] Last Admin: 07/13/25 08:59 Dose: Not Given Allergies Allergies Allergy/AdvReac Type Severity Reaction Status Date / Time bee pollen (BEE STINGS) Allergy Severe ANAPHYLAXIS Verified 07/03/25 20:23 codeine (CODEINE) Allergy Intermediate HIVES Verified 07/03/25 20:23 Penicillins (PENICILLINS) Allergy Intermediate HIVES Verified 07/03/25 20:23 Assessment & Plan Assessment & Plan (1) MDD (major depressive disorder), recurrent, severe, with psychosis: Status: Acute Code(s): F33.3 - Major depressive disorder, recurrent, severe with psychotic symptoms (2) PTSD (post-traumatic stress disorder): Status: Acute Code(s): F43.10 - Post-traumatic stress disorder, unspecified (3) Opioid use disorder: Status: Acute Code(s): F11.90 - Opioid use, unspecified, uncomplicated (4) Cocaine use disorder: Status: Acute Code(s): F14.10 - Cocaine abuse, uncomplicated (5) Homeless: Status: Acute Code(s): Z59.00 - Homelessness unspecified Plan HPI: Patient is a 55-year-old male with history of MDD, PTSD, heroin/cocaine use disorder, Hep C who presents for depression and suicide ideation. Patient was recently discharged from [facility], admitted there for depression and SI. On discharge he reports feeling a little better but depression remained. He remained homeless and went to stay at a friend's house however found out he was not able to remain there and faced with homelessness again, depression return, patient had AH he relapsed on heroin and cocaine and became suicidal. He asked his friend if he could have a gun to commit suicide; his friend of course did not give it to him and the 2 of them called 911. Patient denies history of manic type behaviors or episodes; endorses intermittent AH but only when feeling upset and emotional and mood congruent. Formulation/clinical reasoning: Long history of depression compounded by severe childhood trauma which has remained largely on processed; no significant medication trials. Patient started on mirtazapine which stayed at 7.5 mg and just use for sleep; otherwise history of clonidine, Xanax, Adderall... Patient asking for help, with medication and program for help with substance abuse. Reviewed risks/side effects and patient agreed to start on venlafaxine Hospital course: 07/06 Patient reports he remains depressed and anxious but is feeling better and grateful for the help received. Attending groups. Agrees to increase venlafaxine. Reiterates that he very much wants help getting into a program 07/07 Patient reports overall doing better, depression remains but definitely improving. Patient however reports getting quite anxious today. Not sure if it is due to increase in venlafaxine. Patient continues to engage in groups and work on coping skills. Discussed medication and will lower venlafaxine down again to see if this mitigates anxiety (many possible causes for anxiety; will monitor) 07/08 Reports mood is good, anxiety not too bad today. Reviewed plan with venlafaxine and patient will monitor for spikes in anxiety. Otherwise reports benefitting from groups and hopeful about getting into a program. -lowered venlafaxine to 37.5; will increase back to 75 mg 07/09: Patient states that he feels so so. He reports severe, 7-04/12, anxiety and depressive symptoms 1 hour after taking his medications this morning. However, he states that his more anxious than depressed. He also endorses loss of appetite and hot and cold flashes. He states that his sleep was fragmented last night. He ate some of his breakfast this morning. He denies SI/HI/AVH. He experienced increased anxiety after venlafaxine was recently increased from 37.5 mg to 75 mg daily. The dose was lowered and increased again this morning....which coincides with the patient's increased anxiety and depressive symptoms. Will lower venlafaxine back to 37.5 mg to start tomorrow. Continue current treatment regimen. Verbalized understanding and agreed with the plan. 07/10 Effexor seems to spike anxiety; patient agrees to discontinuing started Zoloft 07/11: From a med perspective agreed to discontinue Zoloft and will increase mirtazapine from 7.5 mg to 15 mg. On chart review rather than utilizing benzodiazepine, given predisposition to addiction for/ dependence will increase gabapentin to 400 mg 3 times per day and olanzapine 5 mg as needed up to 4 times per day. 07/12: trial prazosin for ongoing nightmares 07/13Patient reports struggling with anxiety and depression and how Zoloft was not helpful;l discussed very limited history of medication trials and revisited patient is use of Latuda which he said was helping when discharged from [facility]. Patient would like to get back on that and agrees to restart -though patient does not report history of bipolar disorder, has failed both an SSRI and an SNRI and felt better on Latuda so will restart. Patient understands risks/side effects of antipsychotic medications Patient remains in good behavioral and impulse control; he is appropriate with peers and staff and engaged in treatment Plan: CV Q 15 minute checks Restart Latuda 20 mg q.h.s. with dinner Increased to mirtazapine 15 mg q.h.s. for insomnia/anxiety (trazodone/Seroquel not effective) Started on Prazosin for nightmares DC Zoloft; felt it caused nightmares, anxiety DC Venlafaxine ER causes anxiety Clonidine p.r.n. Clonidine 0.1 mg b.i.d. home med Gabapentin 100 mg t.i.d. home medication Methadone 170 mg daily home medication . Patient educated on: diagnosis, medication risk/benefits, substance abuse and therapeutic strategies Informed Consent: understands Reason for continued inpatient stay Substantial Risk for: stable for discharge Time Spent With Patient Time: Total time managing care of this patient today ____ minutes.
[2025-07-13 12:38] LABS: Glucose, Whole Blood 128 mg/dL (60-115)
[2025-07-13 17:02] VITALS: BP 140/77
[2025-07-13 20:00] VITALS: BP 123/71; PULSE 68; RESP 18; TEMP 36.6; O2SAT 96
[2025-07-13 20:39] VITALS: BP 123/71
[2025-07-13 20:41] VITALS: BP 123/71
[2025-07-14] MEDS: methADONE HCl 20 MG/2 ML ORAL.CONC 170 MG PO (07:56)
[2025-07-14 08:00] VITALS: BP 119/68; PULSE 86; RESP 18; TEMP 37.1; O2SAT 95
[2025-07-14 09:18] VITALS: BP 119/66
[2025-07-14] MEDS: Mineral Oil/Petrolatum,White 106 GM Tube 1 APPL TOPICAL ×2 (11:24→21:10)
[2025-07-14 20:00] VITALS: BP 112/68; PULSE 96; TEMP 37.1; O2SAT 94
[2025-07-14 20:30] VITALS: BP 112/68
--- NOTE | 2025-07-14 22:54 | HO.PSYCHPN ---
Subjective Subjective Date of Service: 07/14/25 Reason For Visit: SI Interim History: Met with patient; discussed with team Patient reports he is feeling much better, agrees to increasing Latuda since at 20 mg it did not prevent decompensation. Patient accepted into program for which he is grateful and plans to discharge tomorrow. Mental Status Exam Mental Status Exam Narrative: Pt is alert and oriented; behavior is social, in good behavioral and impulse control; cooperative, polite, friendly; patient is not in distress; dressed in casual attire; mood is described as good and affect congruent, brighter, calm; eye contact appropriate; Speech is normal rate, volume and prosody and not pressured; no psychomotor retardation remain; thought process is organized and goal directed; Thought content is on dealing with psychosocial stressors, tx; otherwise pertinent to relevant topics and without any delusional content, paranoid ideations or grandiosity; no SI; no HI. Denies AVH and there is no evidence of perceptual disturbance. Patients insight and judgment fair Diagnostics Vital Signs (24Hr): Vital Signs - 24 hr 07/14/25 08:00 07/14/25 09:18 07/14/25 20:00 Temperature 98.7 F 98.8 F Pulse Rate 86 96 Respiratory Rate 18 Blood Pressure 119/68 119/66 112/68 Pulse Oximetry 95 94 Oxygen Delivery Method Room Air Room Air 07/14/25 20:30 07/14/25 20:30 Temperature Pulse Rate Respiratory Rate Blood Pressure 112/68 112/68 Pulse Oximetry Oxygen Delivery Method BMI result Body Mass Index 24.1 Labs 07/03/25 20:58 07/05/25 08:08 Labs: Laboratory Results - last 48 hr 07/13/25 12:32 POC Glucose 128 H Medications Medications Current Medications Acetaminophen (Acetaminophen 325 Mg Tablet) 650 mg PO Q6H PRN PRN Reason: Headache/Pain, Scale 1-10 Last Admin: 07/05/25 11:02 Dose: 650 mg Al Hydroxide/Mg Hydroxide (Magnesium Hydrox/Alum Hydrox 30 Ml Oral.Susp) 30 ml PO Q6H PRN PRN Reason: Heartburn/Nausea Albuterol Sulfate (Albuterol Sulfate 90 Mcg 8 Gm Inhaler) 2 puff INHALE Q4H PRN PRN Reason: Wheezing Amlodipine Besylate (Amlodipine Besylate 5 Mg Tablet) 5 mg PO DAILY SOPHIE; Protocol Last Admin: 07/14/25 09:18 Dose: 5 mg Clonidine HCl (Clonidine Hcl 0.1 Mg Tablet) 0.1 mg PO BID SOPHIE; Protocol Last Admin: 07/14/25 20:30 Dose: 0.1 mg Clonidine HCl (Clonidine Hcl 0.1 Mg Tablet) 0.1 mg PO Q4H PRN; Protocol PRN Reason: moderate anxiety Last Admin: 07/13/25 17:02 Dose: 0.1 mg Gabapentin (Gabapentin 400 Mg Capsule) 400 mg PO TID SOPHIE Last Admin: 07/14/25 20:31 Dose: 400 mg Glucose (Glucose Gel 15 Gm Gel..Gram.) 15 gm PO Q15M PRN PRN Reason: per Hypoglycemia Standing Ord. Hydroxyzine HCl (Hydroxyzine Hcl 50 Mg Tablet) 50 mg PO BID PRN PRN Reason: Anxiety Last Admin: 07/14/25 14:06 Dose: 50 mg Lurasidone HCl (Lurasidone Hcl 40 Mg Tablet) 40 mg PO DAILY@1700 [facility] Last Admin: 07/14/25 17:53 Dose: 40 mg Magnesium Hydroxide (Milk Of Magnesia 30 Ml Oral.Susp) 30 ml PO DAILY PRN PRN Reason: Constipation Methadone HCl (Methadone Hcl 20 Mg/2 Ml Oral.Conc) 170 mg PO DAILY [facility] Last Admin: 07/14/25 07:56 Dose: 170 mg Mirtazapine (Mirtazapine 15 Mg Tablet) 15 mg PO BEDTIME [facility] Last Admin: 07/14/25 20:31 Dose: 15 mg Multi-Ingred Cream/Lotion/Oil/Oint (Mineral Oil/Petrolatum,White 106 Gm Tube) 1 appl TOPICAL TID PRN; Protocol PRN Reason: dry skin Last Admin: 07/14/25 11:24 Dose: 1 appl Multi-Ingred Cream/Lotion/Oil/Oint (Mineral Oil/Petrolatum,White 106 Gm Tube) 1 appl TOPICAL TID SOPHIE; Protocol Last Admin: 07/14/25 21:10 Dose: 1 appl Nicotine Polacrilex (Nicotine Polacrilex 2 Mg Gum) 4 mg BUCCAL Q2H PRN PRN Reason: Nicotine Cravings Olanzapine (Olanzapine 5 Mg Tablet) 5 mg PO Q6H PRN PRN Reason: agitation Last Admin: 07/12/25 15:22 Dose: 5 mg Omeprazole (Omeprazole 20 Mg Capsule.Dr) 20 mg PO DAILY@0630 [facility] Last Admin: 07/14/25 06:10 Dose: 20 mg Prazosin HCl (Prazosin Hcl 1 Mg Capsule) 2 mg PO BEDTIME [facility]; Protocol Last Admin: 07/14/25 20:30 Dose: 2 mg Saliva Substitute (Dry Mouth [place] 60 Ml [place]) 1 spray MUCOUS MEM Q2H PRN PRN Reason: Dry Mouth Trazodone HCl (Trazodone Hcl 50 Mg Tablet) 50 mg PO BEDTIME PRN PRN Reason: Insomnia Triamcinolone Acetonide (Triamcinolone Acet 0.1 % Oint 15 Gm Tube) 1 appl TOPICAL BID [facility] Last Admin: 07/14/25 20:27 Dose: Not Given Allergies Allergies Allergy/AdvReac Type Severity Reaction Status Date / Time bee pollen (BEE STINGS) Allergy Severe ANAPHYLAXIS Verified 07/03/25 20:23 codeine (CODEINE) Allergy Intermediate HIVES Verified 07/03/25 20:23 Penicillins (PENICILLINS) Allergy Intermediate HIVES Verified 07/03/25 20:23 Assessment & Plan Assessment & Plan (1) MDD (major depressive disorder), recurrent, severe, with psychosis: Status: Acute Code(s): F33.3 - Major depressive disorder, recurrent, severe with psychotic symptoms (2) PTSD (post-traumatic stress disorder): Status: Acute Code(s): F43.10 - Post-traumatic stress disorder, unspecified (3) Opioid use disorder: Status: Acute Code(s): F11.90 - Opioid use, unspecified, uncomplicated (4) Cocaine use disorder: Status: Acute Code(s): F14.10 - Cocaine abuse, uncomplicated (5) Homeless: Status: Acute Code(s): Z59.00 - Homelessness unspecified Plan HPI: Patient is a 55-year-old male with history of MDD, PTSD, heroin/cocaine use disorder, Hep C who presents for depression and suicide ideation. Patient was recently discharged from [facility], admitted there for depression and SI. On discharge he reports feeling a little better but depression remained. He remained homeless and went to stay at a friend's house however found out he was not able to remain there and faced with homelessness again, depression return, patient had AH he relapsed on heroin and cocaine and became suicidal. He asked his friend if he could have a gun to commit suicide; his friend of course did not give it to him and the 2 of them called 911. Patient denies history of manic type behaviors or episodes; endorses intermittent AH but only when feeling upset and emotional and mood congruent. Formulation/clinical reasoning: Long history of depression compounded by severe childhood trauma which has remained largely on processed; no significant medication trials. Patient started on mirtazapine which stayed at 7.5 mg and just use for sleep; otherwise history of clonidine, Xanax, Adderall... Patient asking for help, with medication and program for help with substance abuse. Reviewed risks/side effects and patient agreed to start on venlafaxine Hospital course: 07/06 Patient reports he remains depressed and anxious but is feeling better and grateful for the help received. Attending groups. Agrees to increase venlafaxine. Reiterates that he very much wants help getting into a program 07/07 Patient reports overall doing better, depression remains but definitely improving. Patient however reports getting quite anxious today. Not sure if it is due to increase in venlafaxine. Patient continues to engage in groups and work on coping skills. Discussed medication and will lower venlafaxine down again to see if this mitigates anxiety (many possible causes for anxiety; will monitor) 07/08 Reports mood is good, anxiety not too bad today. Reviewed plan with venlafaxine and patient will monitor for spikes in anxiety. Otherwise reports benefitting from groups and hopeful about getting into a program. -lowered venlafaxine to 37.5; will increase back to 75 mg 07/09: Patient states that he feels so so. He reports severe, 7-8/10, anxiety and depressive symptoms 1 hour after taking his medications this morning. However, he states that his more anxious than depressed. He also endorses loss of appetite and hot and cold flashes. He states that his sleep was fragmented last night. He ate some of his breakfast this morning. He denies SI/HI/AVH. He experienced increased anxiety after venlafaxine was recently increased from 37.5 mg to 75 mg daily. The dose was lowered and increased again this morning....which coincides with the patient's increased anxiety and depressive symptoms. Will lower venlafaxine back to 37.5 mg to start tomorrow. Continue current treatment regimen. Verbalized understanding and agreed with the plan. 07/10 Effexor seems to spike anxiety; patient agrees to discontinuing started Zoloft 07/11: From a med perspective agreed to discontinue Zoloft and will increase mirtazapine from 7.5 mg to 15 mg. On chart review rather than utilizing benzodiazepine, given predisposition to addiction for/ dependence will increase gabapentin to 400 mg 3 times per day and olanzapine 5 mg as needed up to 4 times per day. 07/12: trial prazosin for ongoing nightmares 07/13Patient reports struggling with anxiety and depression and how Zoloft was not helpful;l discussed very limited history of medication trials and revisited patient is use of Latuda which he said was helping when discharged from [facility]. Patient would like to get back on that and agrees to restart -though patient does not report history of bipolar disorder, has failed both an SSRI and an SNRI and felt better on Latuda so will restart. Patient understands risks/side effects of antipsychotic medications Patient remains in good behavioral and impulse control; he is appropriate with peers and staff and engaged in treatment 07/14 Patient reports he is feeling much better, agrees to increasing Latuda since at 20 mg it did not prevent decompensation. Patient accepted into program for which he is grateful and plans to discharge tomorrow Patient remains in good behavioral and impulse control, appropriate with peers and staff and engaged in treatment. Patient is not in imminent risk for harm to self or others. He is accepted to a program and is appropriate to return to the community for treatment. Plan: CV Q 15 minute checks Increase to Latuda 40 mg at dinnertime Increased to mirtazapine 15 mg q.h.s. for insomnia/anxiety (trazodone/Seroquel not effective) Started on Prazosin for nightmares DC Zoloft; felt it caused nightmares, anxiety DC Venlafaxine ER causes anxiety Clonidine p.r.n. Clonidine 0.1 mg b.i.d. home med Gabapentin 100 mg t.i.d. home medication Methadone 170 mg daily home medication . Patient educated on: diagnosis, medication risk/benefits, substance abuse and therapeutic strategies Informed Consent: understands Reason for continued inpatient stay Substantial Risk for: stable for discharge Time Spent With Patient Time: Total time managing care of this patient today ____ minutes.
--- NOTE | 2025-07-14 23:30 | PM.PSYDC ---
DS: Providers Provider Date of Service: 07/15/25 Date of admission: 07/04/25 14:30 Date of discharge: 07/15/25 Primary care physician: Unknown Physician DS: Diagnosis Discharge Diagnosis (1) MDD (major depressive disorder), recurrent, severe, with psychosis: Status: Acute (2) PTSD (post-traumatic stress disorder): Status: Acute (3) Opioid use disorder: Status: Acute (4) Cocaine use disorder: Status: Acute (5) Homeless: Status: Acute DS: Medications Discharge Medications Home Medications: Previous Rx's ?Medication ?Instructions ?Recorded albuterol sulfate 90 mcg/actuation 2 puff inhalation Q4-6H PRN 07/14/25 aerosol inhaler (Ventolin HFA) Wheezing 30 days #6.7 grams amlodipine 5 mg tablet 5 mg PO DAILY 30 days #30 tabs 07/14/25 clonidine HCl 0.1 mg tablet See Rx Instructions .Route 07/14/25 .COMPLEX #120 tabs colloidal oatmeal 1 % topical 1 appl topical TID PRN dry skin 30 07/14/25 cream (Eczema Relief) days #226 grams gabapentin 400 mg capsule 400 mg PO TID 30 days #90 caps 07/14/25 hydroxyzine pamoate 50 mg capsule 50 mg PO BID PRN Anxiety 30 days 07/14/25 #60 caps lurasidone 40 mg tablet 40 mg PO DAILY@1700 30 days #30 07/14/25 tabs methadone 10 mg/mL oral 170 mg (17 mL) PO DAILY #0 mL 07/14/25 concentrate (Methadose) mirtazapine 15 mg tablet 15 mg PO BEDTIME 30 days #30 tabs 07/14/25 omeprazole 20 mg capsule,delayed 20 mg PO DAILY@0630 30 days #30 07/14/25 release caps prazosin 2 mg capsule 2 mg PO BEDTIME 30 days #30 caps 07/14/25 xylitol-yerba lalita mucosal spray 1 spray mucous membrane Q2H PRN 07/14/25 with pump ([facility] [place]) Dry Mouth 30 days #59 mL Data Data Completed and Pending Completed studies during hospitalization [Text1]: 07/13/25 12:32 POC Glucose 128 H DS: Summary Time Spent with Patient Time attestation: Total time managing care of this patient today ____ minutes. Discharge Plan Discharge Anticipated Discharge Date/Time: 07/15/25 11:29 Patient Disposition: [facility] Discharge Diagnosis: MDD, recurrent, severe without psychosis, in partial remission Referrals: [facility] Housing Program [Other] - 1 Week Referral Note: Follow-up with Vianey as she has submitted your application for housing. [facility] [Other] - 07/15/25 11:00 am Referral Note: You have been accepted into [facility] at [place] Other Clinic Options: [Other] - 1 Week Referral Note: Walk in hours include Sun & Sunday from 8 am-5pm and Sunday, , Sunday from 8am-6pm. Physician,Unknown J [Primary Care Provider, Medical] - 1 Week Discharge Medications: New amlodipine 5 mg Tablet 5 mg PO DAILY 30 Days Qty: 30 1RF Protocol: Hold for SBP< HOLD for SBP < : 90 prazosin 2 mg capsule 2 mg PO BEDTIME 30 Days Qty: 30 1RF methadone [Methadose] 10 mg/mL Concentrate 170 mg PO DAILY Qty: 0 0RF Rx Instructions: Partial Fill upon patient request. omeprazole 20 mg Capsule,Delayed Release(Dr/Ec) 20 mg PO DAILY@0630 30 Days Qty: 30 1RF [facility] [place] With Pump 1 spray mucous membrane Q2H PRN (Reason: Dry Mouth) 30 Days Qty: 59 1RF Eczema Relief 1 % cream 1 appl topical TID PRN (Reason: dry skin) 30 Days Qty: 226 1RF Rx Instructions: apply to hands Continued albuterol sulfate [Ventolin HFA] 90 mcg/actuation HFA aerosol inhaler 2 puff inhalation Q4-6H PRN (Reason: Wheezing) 30 Days Qty: 6.7 1RF hydroxyzine pamoate 50 mg capsule 50 mg PO BID PRN (Reason: Anxiety) 30 Days Qty: 60 1RF Changed clonidine HCl 0.1 mg tablet See Rx Instructions .ROUTE .COMPLEX Qty: 120 1RF Rx Instructions: take 1 tab in the morning and 1 tab at bedtime; may take additional tab 2 times a day as needed for moderate anxiety gabapentin 400 mg capsule 400 mg PO TID 30 Days Qty: 90 1RF mirtazapine 15 mg tablet 15 mg PO BEDTIME 30 Days Qty: 30 1RF lurasidone 40 mg tablet 40 mg PO DAILY@1700 30 Days Qty: 30 1RF Discontinued methadone [Methadone Intensol] 10 mg/mL Concentrate 160 mg PO DAILY Discharge Orders: Discharge Order (Routine); Ordered 07/15/25 Ordered By: Gus Morris Diet: Regular diet Activity on Discharge: As tolerated Stand Alone Forms: Patient Portal Discharge page Print Language: Swedish Care Plan Goals: Maintain mood and safe behaviors Take medications as prescribed Continue to pursue sobriety Practice coping skills Continue with outpatient providers and reach out to them as needed Health Concerns: Mood stability and behaviors Sobriety Asthma Plan of Treatment: Follow up with your PCP, psychiatric provider and other outpatient providers regarding above concerns Take medications as prescribed Assessment: Risk assessment at time of discharge:? Patient was interviewed prior to discharge and found to be fully oriented and without any SI or HI. Patient has improved insight and judgment and wants to continue treatment. Patient is not in imminent risk of harm to self or others and has a safety plan that includes presenting to the closest ER or calling 911 if feeling unsafe.? Patient has been observed closely by nursing and unit staff throughout admission; patient has not engaged in any behaviors that suggest dangerousness to self or others and has demonstrated appropriate behaviors and impulse control
[2025-07-15] MEDS: methADONE HCl 20 MG/2 ML ORAL.CONC 170 MG PO (07:57)
[2025-07-15 08:00] VITALS: BP 128/66; PULSE 69; RESP 16; TEMP 36.2; O2SAT 96
[2025-07-15] MEDS: Mineral Oil/Petrolatum,White 106 GM Tube 1 APPL TOPICAL (08:38)
--- NOTE | 2025-07-15 09:05 | P.PNPSI_ITS ---
Subjective Subjective Date of Service: 07/15/25 Reason For Visit: SI Diagnostics Vital Signs (24Hr): Vital Signs - 24 hr 07/14/25 09:18 07/14/25 20:00 07/14/25 20:30 Temperature 98.8 F Pulse Rate 96 Blood Pressure 119/66 112/68 112/68 Pulse Oximetry 94 Oxygen Delivery Method Room Air 07/14/25 20:30 07/15/25 08:00 Temperature 97.2 F Pulse Rate 69 Blood Pressure 112/68 128/66 Pulse Oximetry 96 Oxygen Delivery Method Room Air BMI result Body Mass Index 24.1 Labs 07/03/25 20:58 07/05/25 08:08 Labs: Laboratory Results - last 48 hr 07/13/25 12:32 POC Glucose 128 H Medications Medications Current Medications Acetaminophen (Acetaminophen 325 Mg Tablet) 650 mg PO Q6H PRN PRN Reason: Headache/Pain, Scale 1-10 Last Admin: 07/05/25 11:02 Dose: 650 mg Al Hydroxide/Mg Hydroxide (Magnesium Hydrox/Alum Hydrox 30 Ml Oral.Susp) 30 ml PO Q6H PRN PRN Reason: Heartburn/Nausea Albuterol Sulfate (Albuterol Sulfate 90 Mcg 8 Gm Inhaler) 2 puff INHALE Q4H PRN PRN Reason: Wheezing Amlodipine Besylate (Amlodipine Besylate 5 Mg Tablet) 5 mg PO DAILY [facility]; Protocol Last Admin: 07/15/25 08:38 Dose: 5 mg Clonidine HCl (Clonidine Hcl 0.1 Mg Tablet) 0.1 mg PO BID [facility]; Protocol Last Admin: 07/15/25 08:38 Dose: 0.1 mg Clonidine HCl (Clonidine Hcl 0.1 Mg Tablet) 0.1 mg PO Q4H PRN; Protocol PRN Reason: moderate anxiety Last Admin: 07/13/25 17:02 Dose: 0.1 mg Gabapentin (Gabapentin 400 Mg Capsule) 400 mg PO TID [facility] Last Admin: 07/15/25 08:37 Dose: 400 mg Glucose (Glucose Gel 15 Gm Gel..Gram.) 15 gm PO Q15M PRN PRN Reason: per Hypoglycemia Standing Ord. Hydroxyzine HCl (Hydroxyzine Hcl 50 Mg Tablet) 50 mg PO BID PRN PRN Reason: Anxiety Last Admin: 07/14/25 14:06 Dose: 50 mg Lurasidone HCl (Lurasidone Hcl 40 Mg Tablet) 40 mg PO DAILY@1700 [facility] Last Admin: 07/14/25 17:53 Dose: 40 mg Magnesium Hydroxide (Milk Of Magnesia 30 Ml Oral.Susp) 30 ml PO DAILY PRN PRN Reason: Constipation Methadone HCl (Methadone Hcl 20 Mg/2 Ml Oral.Conc) 170 mg PO DAILY [facility] Last Admin: 07/15/25 07:57 Dose: 170 mg Mirtazapine (Mirtazapine 15 Mg Tablet) 15 mg PO BEDTIME [facility] Last Admin: 07/14/25 20:31 Dose: 15 mg Multi-Ingred Cream/Lotion/Oil/Oint (Mineral Oil/Petrolatum,White 106 Gm Tube) 1 appl TOPICAL TID PRN; Protocol PRN Reason: dry skin Last Admin: 07/14/25 11:24 Dose: 1 appl Multi-Ingred Cream/Lotion/Oil/Oint (Mineral Oil/Petrolatum,White 106 Gm Tube) 1 appl TOPICAL TID [facility]; Protocol Last Admin: 07/15/25 08:38 Dose: 1 appl Nicotine Polacrilex (Nicotine Polacrilex 2 Mg Gum) 4 mg BUCCAL Q2H PRN PRN Reason: Nicotine Cravings Olanzapine (Olanzapine 5 Mg Tablet) 5 mg PO Q6H PRN PRN Reason: agitation Last Admin: 07/12/25 15:22 Dose: 5 mg Omeprazole (Omeprazole 20 Mg Capsule.Dr) 20 mg PO DAILY@0630 [facility] Last Admin: 07/15/25 06:44 Dose: 20 mg Prazosin HCl (Prazosin Hcl 1 Mg Capsule) 2 mg PO BEDTIME [facility]; Protocol Last Admin: 07/14/25 20:30 Dose: 2 mg Saliva Substitute (Dry Mouth [place] 60 Ml [place]) 1 spray MUCOUS MEM Q2H PRN PRN Reason: Dry Mouth Trazodone HCl (Trazodone Hcl 50 Mg Tablet) 50 mg PO BEDTIME PRN PRN Reason: Insomnia Triamcinolone Acetonide (Triamcinolone Acet 0.1 % Oint 15 Gm Tube) 1 appl TOPICAL BID [facility] Last Admin: 07/15/25 08:38 Dose: Not Given Allergies Allergies Allergy/AdvReac Type Severity Reaction Status Date / Time bee pollen (BEE STINGS) Allergy Severe ANAPHYLAXIS Verified 07/03/25 20:23 codeine (CODEINE) Allergy Intermediate HIVES Verified 07/03/25 20:23 Penicillins (PENICILLINS) Allergy Intermediate HIVES Verified 07/03/25 20:23 Assessment & Plan Assessment & Plan (1) MDD (major depressive disorder), recurrent, severe, with psychosis: Status: Acute Code(s): F33.3 - Major depressive disorder, recurrent, severe with psychotic symptoms (2) PTSD (post-traumatic stress disorder): Status: Acute Code(s): F43.10 - Post-traumatic stress disorder, unspecified (3) Opioid use disorder: Status: Acute Code(s): F11.90 - Opioid use, unspecified, uncomplicated (4) Cocaine use disorder: Status: Acute Code(s): F14.10 - Cocaine abuse, uncomplicated (5) Homeless: Status: Acute Code(s): Z59.00 - Homelessness unspecified Plan HPI: Patient is a 55-year-old male with history of MDD, PTSD, heroin/cocaine use disorder, Hep C who presents for depression and suicide ideation. Patient was recently discharged from [facility], admitted there for depression and SI. On discharge he reports feeling a little better but depression remained. He remained homeless and went to stay at a friend's house however found out he was not able to remain there and faced with homelessness again, depression return, patient had AH he relapsed on heroin and cocaine and became suicidal. He asked his friend if he could have a gun to commit suicide; his friend of course did not give it to him and the 2 of them called 911. Patient denies history of manic type behaviors or episodes; endorses intermittent AH but only when feeling upset and emotional and mood congruent. Formulation/clinical reasoning: Long history of depression compounded by severe childhood trauma which has remained largely on processed; no significant medication trials. Patient started on mirtazapine which stayed at 7.5 mg and just use for sleep; otherwise history of clonidine, Xanax, Adderall... Patient asking for help, with medication and program for help with substance abuse. Reviewed risks/side effects and patient agreed to start on venlafaxine Hospital course: 07/06 Patient reports he remains depressed and anxious but is feeling better and grateful for the help received. Attending groups. Agrees to increase venlafaxine. Reiterates that he very much wants help getting into a program 07/07 Patient reports overall doing better, depression remains but definitely improving. Patient however reports getting quite anxious today. Not sure if it is due to increase in venlafaxine. Patient continues to engage in groups and work on coping skills. Discussed medication and will lower venlafaxine down again to see if this mitigates anxiety (many possible causes for anxiety; will monitor) 07/08 Reports mood is good, anxiety not too bad today. Reviewed plan with venlafaxine and patient will monitor for spikes in anxiety. Otherwise reports benefitting from groups and hopeful about getting into a program. -lowered venlafaxine to 37.5; will increase back to 75 mg 07/09: Patient states that he feels so so. He reports severe, 7-04/12, anxiety and depressive symptoms 1 hour after taking his medications this morning. However, he states that his more anxious than depressed. He also endorses loss of appetite and hot and cold flashes. He states that his sleep was fragmented last night. He ate some of his breakfast this morning. He denies SI/HI/AVH. He experienced increased anxiety after venlafaxine was recently increased from 37.5 mg to 75 mg daily. The dose was lowered and increased again this morning....which coincides with the patient's increased anxiety and depressive symptoms. Will lower venlafaxine back to 37.5 mg to start tomorrow. Continue current treatment regimen. Verbalized understanding and agreed with the plan. 07/10 Effexor seems to spike anxiety; patient agrees to discontinuing started Zoloft 07/11: From a med perspective agreed to discontinue Zoloft and will increase mirtazapine from 7.5 mg to 15 mg. On chart review rather than utilizing benzodiazepine, given predisposition to addiction for/ dependence will increase gabapentin to 400 mg 3 times per day and olanzapine 5 mg as needed up to 4 times per day. 07/12: trial prazosin for ongoing nightmares 07/13Patient reports struggling with anxiety and depression and how Zoloft was not helpful;l discussed very limited history of medication trials and revisited patient is use of Latuda which he said was helping when discharged from [facility]. Patient would like to get back on that and agrees to restart -though patient does not report history of bipolar disorder, has failed both an SSRI and an SNRI and felt better on Latuda so will restart. Patient understands risks/side effects of antipsychotic medications Patient remains in good behavioral and impulse control; he is appropriate with peers and staff and engaged in treatment 07/14 Patient reports he is feeling much better, agrees to increasing Latuda since at 20 mg it did not prevent decompensation. Patient accepted into program for which he is grateful and plans to discharge tomorrow Patient remains in good behavioral and impulse control, appropriate with peers and staff and engaged in treatment. Patient is not in imminent risk for harm to self or others. He is accepted to a program and is appropriate to return to the community for treatment. Plan: CV Q 15 minute checks Increase to Latuda 40 mg at dinnertime Increased to mirtazapine 15 mg q.h.s. for insomnia/anxiety (trazodone/Seroquel not effective) Started on Prazosin for nightmares DC Zoloft; felt it caused nightmares, anxiety DC Venlafaxine ER causes anxiety Clonidine p.r.n. Clonidine 0.1 mg b.i.d. home med Gabapentin 100 mg t.i.d. home medication Methadone 170 mg daily home medication . Time Spent With Patient Time: Total time managing care of this patient today ____ minutes.
[2025-07-15] MEDS: Naloxone HCl Nasal TAKE HOME 4 MG SPRAY 8 MG NOSTRILALT (11:07)
--- NOTE | 2025-07-15 17:47 | PM.PSYDC ---
DS: Providers Provider Date of Service: 07/15/25 Date of admission: 07/04/25 14:30 Date of discharge: 07/15/25 Primary care physician: Unknown Physician Attending physician on admission: Gus Morris Attending physician on discharge: Gus Morris DS: Diagnosis Discharge Diagnosis (1) MDD (major depressive disorder), recurrent, severe, with psychosis: Status: Acute (2) PTSD (post-traumatic stress disorder): Status: Acute (3) Opioid use disorder: Status: Acute (4) Cocaine use disorder: Status: Acute (5) Homeless: Status: Acute DS: Medications Discharge Medications Home Medications: Previous Rx's ?Medication ?Instructions ?Recorded albuterol sulfate 90 mcg/actuation 2 puff inhalation Q4-6H PRN 07/14/25 aerosol inhaler (Ventolin HFA) Wheezing 30 days #6.7 grams amlodipine 5 mg tablet 5 mg PO DAILY 30 days #30 tabs 07/14/25 clonidine HCl 0.1 mg tablet See Rx Instructions .Route 07/14/25 .COMPLEX #120 tabs colloidal oatmeal 1 % topical 1 appl topical TID PRN dry skin 30 07/14/25 cream (Eczema Relief) days #226 grams gabapentin 400 mg capsule 400 mg PO TID 30 days #90 caps 07/14/25 hydroxyzine pamoate 50 mg capsule 50 mg PO BID PRN Anxiety 30 days 07/14/25 #60 caps lurasidone 40 mg tablet 40 mg PO DAILY@1700 30 days #30 07/14/25 tabs methadone 10 mg/mL oral 170 mg (17 mL) PO DAILY #0 mL 07/14/25 concentrate (Methadose) mirtazapine 15 mg tablet 15 mg PO BEDTIME 30 days #30 tabs 07/14/25 omeprazole 20 mg capsule,delayed 20 mg PO DAILY@0630 30 days #30 07/14/25 release caps prazosin 2 mg capsule 2 mg PO BEDTIME 30 days #30 caps 07/14/25 xylitol-yerba lalita mucosal spray 1 spray mucous membrane Q2H PRN 07/14/25 with pump ([place]) Dry Mouth 30 days #59 mL Mental Status Exam Mental Status Exam Narrative: Pt is alert and oriented; behavior is social, in good behavioral and impulse control; cooperative, polite, friendly; patient is not in distress; dressed in casual attire; mood is described as good and affect congruent, brighter, calm; eye contact appropriate; Speech is normal rate, volume and prosody and not pressured; no psychomotor retardation remain; thought process is organized and goal directed; Thought content is on dealing with psychosocial stressors, tx; otherwise pertinent to relevant topics and without any delusional content, paranoid ideations or grandiosity; no SI; no HI. Denies AVH and there is no evidence of perceptual disturbance. Patients insight and judgment fair Data Data Completed and Pending Completed studies during hospitalization [Text1]: 07/13/25 12:32 POC Glucose 128 H DS: Summary Hospital Course Hospital Course: HPI: Patient is a 55-year-old male with history of MDD, PTSD, heroin/cocaine use disorder, Hep C who presents for depression and suicide ideation. Patient was recently discharged from [facility], admitted there for depression and SI. On discharge he reports feeling a little better but depression remained. He remained homeless and went to stay at a friend's house however found out he was not able to remain there and faced with homelessness again, depression return, patient had AH he relapsed on heroin and cocaine and became suicidal. He asked his friend if he could have a gun to commit suicide; his friend of course did not give it to him and the 2 of them called 911. Patient denies history of manic type behaviors or episodes; endorses intermittent AH but only when feeling upset and emotional and mood congruent. Formulation/clinical reasoning: Long history of depression compounded by severe childhood trauma which has remained largely on processed; no significant medication trials. Patient started on mirtazapine which stayed at 7.5 mg and just use for sleep; otherwise history of clonidine, Xanax, Adderall... Patient asking for help, with medication and program for help with substance abuse. Reviewed risks/side effects and patient agreed to start on venlafaxine Hospital course: 07/06 Patient reports he remains depressed and anxious but is feeling better and grateful for the help received. Attending groups. Agrees to increase venlafaxine. Reiterates that he very much wants help getting into a program 07/07 Patient reports overall doing better, depression remains but definitely improving. Patient however reports getting quite anxious today. Not sure if it is due to increase in venlafaxine. Patient continues to engage in groups and work on coping skills. Discussed medication and will lower venlafaxine down again to see if this mitigates anxiety (many possible causes for anxiety; will monitor) 07/08 Reports mood is good, anxiety not too bad today. Reviewed plan with venlafaxine and patient will monitor for spikes in anxiety. Otherwise reports benefitting from groups and hopeful about getting into a program. -lowered venlafaxine to 37.5; will increase back to 75 mg 07/09: Patient states that he feels so so. He reports severe, 7-810, anxiety and depressive symptoms 1 hour after taking his medications this morning. However, he states that his more anxious than depressed. He also endorses loss of appetite and hot and cold flashes. He states that his sleep was fragmented last night. He ate some of his breakfast this morning. He denies SI/HI/AVH. He experienced increased anxiety after venlafaxine was recently increased from 37.5 mg to 75 mg daily. The dose was lowered and increased again this morning....which coincides with the patient's increased anxiety and depressive symptoms. Will lower venlafaxine back to 37.5 mg to start tomorrow. Continue current treatment regimen. Verbalized understanding and agreed with the plan. 07/10 Effexor seems to spike anxiety; patient agrees to discontinuing started Zoloft 07/11: From a med perspective agreed to discontinue Zoloft and will increase mirtazapine from 7.5 mg to 15 mg. On chart review rather than utilizing benzodiazepine, given predisposition to addiction for/ dependence will increase gabapentin to 400 mg 3 times per day and olanzapine 5 mg as needed up to 4 times per day. 07/12: trial prazosin for ongoing nightmares 07/13Patient reports struggling with anxiety and depression and how Zoloft was not helpful;l discussed very limited history of medication trials and revisited patient is use of Latuda which he said was helping when discharged from [facility]. Patient would like to get back on that and agrees to restart -though patient does not report history of bipolar disorder, has failed both an SSRI and an SNRI and felt better on Latuda so will restart. Patient understands risks/side effects of antipsychotic medications Patient remains in good behavioral and impulse control; he is appropriate with peers and staff and engaged in treatment Patient remains in good behavioral and impulse control, appropriate with peers and staff and engaged in treatment. Patient is not in imminent risk for harm to self or others. He is accepted to a program and is appropriate to return to the community for treatment. Medications: Restarted Latuda 40 mg at dinnertime Increase mirtazapine 15 mg q.h.s Increase Gabapentin 400 mg t.i.d. Increased Methadone 170 mg daily Started Prazosin Continue Clonidine 0.1 mg b.i.d. Status at Discharge Functional status at discharge: independent ambulation Overall status at discharge: patient is back to baseline Time Spent with Patient Time attestation: Total time managing care of this patient today ___40_ minutes. Specific discharge activities: Met with patient; discussed with team; charting; prescriptions Discharge Plan Discharge Anticipated Discharge Date/Time: 07/15/25 10:43 Patient Disposition: Snf Discharge Diagnosis: MDD, recurrent, severe without psychosis, in partial remission Referrals: [facility] Housing Program [Other] - 1 Week Referral Note: Follow-up with Vianey as she has submitted your application for housing. [facility] [Other] - 07/15/25 11:00 am Referral Note: You have been accepted into [facility] [place] Other Clinic Options: [Other] - 1 Week Referral Note: Walk in hours include Sun & Sunday from 8 am-5pm and Sunday, , Sunday from 8am-6pm. Physician,Unknown J [Primary Care Provider, Medical] - 1 Week Referral Note: Pt to follow up with PCP after [facility] program completion. Discharge Medications: New amlodipine 5 mg Tablet 5 mg PO DAILY 30 Days Qty: 30 1RF Protocol: Hold for SBP< HOLD for SBP < : 90 prazosin 2 mg capsule 2 mg PO BEDTIME 30 Days Qty: 30 1RF methadone [Methadose] 10 mg/mL Concentrate 170 mg PO DAILY Qty: 0 0RF Rx Instructions: Partial Fill upon patient request. omeprazole 20 mg Capsule,Delayed Release(Dr/Ec) 20 mg PO DAILY@0630 30 Days Qty: 30 1RF [place] With Pump 1 spray mucous membrane Q2H PRN (Reason: Dry Mouth) 30 Days Qty: 59 1RF Eczema Relief 1 % cream 1 appl topical TID PRN (Reason: dry skin) 30 Days Qty: 226 1RF Rx Instructions: apply to hands Continued albuterol sulfate [Ventolin HFA] 90 mcg/actuation HFA aerosol inhaler 2 puff inhalation Q4-6H PRN (Reason: Wheezing) 30 Days Qty: 6.7 1RF hydroxyzine pamoate 50 mg capsule 50 mg PO BID PRN (Reason: Anxiety) 30 Days Qty: 60 1RF Changed clonidine HCl 0.1 mg tablet See Rx Instructions .ROUTE .COMPLEX Qty: 120 1RF Rx Instructions: take 1 tab in the morning and 1 tab at bedtime; may take additional tab 2 times a day as needed for moderate anxiety gabapentin 400 mg capsule 400 mg PO TID 30 Days Qty: 90 1RF mirtazapine 15 mg tablet 15 mg PO BEDTIME 30 Days Qty: 30 1RF lurasidone 40 mg tablet 40 mg PO DAILY@1700 30 Days Qty: 30 1RF Discontinued methadone [Methadone Intensol] 10 mg/mL Concentrate 160 mg PO DAILY Discharge Orders: Discharge Order (Routine); Ordered 07/15/25 Ordered By: Gus Morris Diet: Regular diet Activity on Discharge: As tolerated Stand Alone Forms: Patient Portal Discharge page, Community Support Print Language: Icelandic Care Plan Goals: Maintain mood and safe behaviors Take medications as prescribed Continue to pursue sobriety Practice coping skills Continue with outpatient providers and reach out to them as needed Health Concerns: Mood stability and behaviors Sobriety Asthma Plan of Treatment: Follow up with your PCP, psychiatric provider and other outpatient providers regarding above concerns Take medications as prescribed Assessment: Risk assessment at time of discharge:? Patient was interviewed prior to discharge and found to be fully oriented and without any SI or HI. Patient has improved insight and judgment and wants to continue treatment. Patient is not in imminent risk of harm to self or others and has a safety plan that includes presenting to the closest ER or calling 911 if feeling unsafe.? Patient has been observed closely by nursing and unit staff throughout admission; patient has not engaged in any behaviors that suggest dangerousness to self or others and has demonstrated appropriate behaviors and impulse control Discharge Date/Time: 07/15/25 11:18
== END 2025-07-15 11:18 | disposition home or self-care (01) | DRG 751 ==
LOC: HO.ED 07-04 07:01 → HO.PM5 07-04 14:39
PROVIDERS: Physician Assistant Medical; Admitting Provider Psychiatry & Neurology Psychiatry; Emergency Provider Emergency Medicine Emergency Medical Services; Visit Provider Psychiatry & Neurology Psychiatry
DX: F33.2 Major depressive disorder, recurrent severe without psychotic features (principal); R45.851 Suicidal ideations; F11.20 Opioid dependence, uncomplicated; F14.10 Cocaine abuse, uncomplicated; B19.20 Unspecified viral hepatitis C without hepatic coma; K21.9 Gastro-esophageal reflux disease without esophagitis; F43.10 Post-traumatic stress disorder, unspecified; Z59.02 Unsheltered homelessness; Z79.899 Other long term (current) drug therapy
CPT/HCPCS: 36415; 80053; 80061; 80143; 80179; 80307; 81001; 82947; 83036; 84443; 85025; 93005; 99285; S9485

== ENCOUNTER → 2025-07-04 11:52 | Outpatient (BNV) | payer OTHER, SELFPAY | PROVIDERS: Admitting Provider Psychiatry & Neurology Psychiatry; Emergency Provider Emergency Medicine Emergency Medical Services; Visit Provider Internal Medicine | DX: R00.1 Bradycardia, unspecified (principal) | CPT/HCPCS: 93010 ==

== ENCOUNTER → 2025-07-04 14:30 | Outpatient (BNV) | payer OTHER, SELFPAY | PROVIDERS: Admitting Provider Psychiatry & Neurology Psychiatry; Emergency Provider Emergency Medicine Emergency Medical Services; Visit Provider Nurse Practitioner Family | DX: K21.9 Gastro-esophageal reflux disease without esophagitis (principal) | CPT/HCPCS: 99221 ==

== ENCOUNTER → 2025-07-04 14:30 | Outpatient (BNV) | payer OTHER, SELFPAY | PROVIDERS: Admitting Provider Psychiatry & Neurology Psychiatry; Emergency Provider Emergency Medicine Emergency Medical Services; Visit Provider Psychiatry & Neurology Psychiatry | DX: F33.3 Major depressive disorder, recurrent, severe with psychotic symptoms (principal); F43.10 Post-traumatic stress disorder, unspecified; F11.90 Opioid use, unspecified, uncomplicated; F14.10 Cocaine abuse, uncomplicated; Z59.00 Homelessness unspecified | CPT/HCPCS: 99232 ==